=== PATIENT | female | born 1965 | race Caucasian/White ===

== ENCOUNTER 2020-12-15 09:15 | Outpatient (REF) | payer OTHER, SELFPAY ==
[2020-12-15 11:29] LABS: MANUAL DIFF FLAG NO
[2020-12-15 11:37] LABS: Basophils Percent Auto 0.6 % (0-2); Eosinophils Absolute Auto 0.2 X10*3/uL (0.0-0.4); Hemoglobin 14.3 g/dl (12.0-16.0); Imm Gran Abs Auto 0.01 X10*3/uL (0.00-0.03); Imm Gran Pct Auto 0.2 % (0.0-0.4); Lymphocytes Absolute Auto 1.2 X10*3/uL (1.2-4.9); Lymphocytes Percent Auto 23.2 % (20-40); Mean Corpuscular HGB Conc 33.3 g/dl (31.0-35.0); Mean Corpuscular Hemoglobin 32.2 pg (27.0-33.0); Mean Corpuscular Volume 96.8 fL (80-98); Mean Platelet Volume 10.6 fL (9.4-12.3); Monocytes Absolute Auto 0.5 X10*3/uL (0.1-1.2); Monocytes Percent Auto 9.2 % (2-11); Neutrophils Absolute Auto 3.2 X10*3/uL (2.0-8.3); Neutrophils Percent Auto 63.8 % (45-73); Platelet Count 315 X10*3/uL (160-400); Red Blood Count 4.44 X10*6/uL (4.20-5.50); Red Cell Distribution Width 12.6 % (11.0-16.0)
[2020-12-15 12:18] LABS: Anion Gap 14 (12-20); Blood Urea Nitrogen 14 mg/dL (9-16); Calcium 9.6 mg/dL (8.4-10.2); Carbon Dioxide 29 mmol/L (22-29); Chloride 104 mmol/L (96-108); Estimated Glomerular Filt Rate > 60; Glucose Random 100 mg/dL (60-115); Potassium 4.6 mmol/L (3.3-5.1); Sodium 142 mmol/L (135-145)
[2020-12-15 12:25] LABS: Erythrocyte Sedimentation Rate 38 MM/HR (0-20)
== END 2020-12-15 09:16 | disposition home or self-care (01) ==
LOC: HO.LAB 09:15
PROVIDERS: Visit Provider Nurse Practitioner Family
DX: R06.02 Shortness of breath (principal); T50.B95A Adverse effect of other viral vaccines, initial encounter; Z20.822 Contact with and (suspected) exposure to COVID-19
CPT/HCPCS: 36415; 80048; 85025; 85652; U0003; U0005

== ENCOUNTER 2020-12-15 09:16 | Outpatient (REF) | payer OTHER, SELFPAY ==
--- NOTE | ~2020-12-15 | XR_ITS ---
EXAMINATION: XR CHEST CLINICAL INFORMATION: Shortness of breath. Prior history non-Hodgkin's lymphoma. COMPARISON: CT abdomen 02/28/2017, CTA chest 10/01/2015. TECHNIQUE: 2 views of the chest were obtained. FINDINGS: The lungs are clear. There is no vascular congestion, pneumothorax, airspace opacity, or groundglass opacities. The costophrenic sulci are clear. The heart is normal in size. The hilar and mediastinal contours are unremarkable. There are some old calcified nodes again seen anterior left mediastinum, better appreciated on CTA chest 2015. That exam report notes calcified nodes related to treated non-Hodgkin's lymphoma. No acute bony abnormality. XR/XR chest 2V IMPRESSION: 1. Lungs clear. 2. Old calcified nodes anterior left mediastinum similar to CT 2015.
== END 2020-12-15 09:17 | disposition home or self-care (01) ==
LOC: HO.HMGCX 09:16
PROVIDERS: PCP Internal Medicine; Visit Provider Nurse Practitioner Family
DX: R06.02 Shortness of breath (principal); T50.B95A Adverse effect of other viral vaccines, initial encounter
CPT/HCPCS: 71046

== ENCOUNTER 2021-12-11 10:15 | Outpatient (REF) | payer OTHER, SELFPAY ==
--- NOTE | ~2021-12-11 | XR_ITS ---
EXAMINATION: XR RIBS, RIGHT CLINICAL INFORMATION: Pleurodynia COMPARISON: Chest x-ray 12/15/2020. TECHNIQUE: 3 views of the right ribs were obtained. FINDINGS: Lungs are clear. No consolidation, pneumothorax, or pleural effusion. The cardiomediastinal silhouette and pulmonary vasculature are normal. Old calcified left hilar lymph nodes. Cholecystectomy clips. Osseous structures are unremarkable. Ribs are intact. No fractures are identified. XR/XR ribs RT min 3V w CXR1V IMPRESSION: No rib fracture. No pleural effusion. No pneumothorax. No focal pneumonia.
== END 2021-12-11 10:16 | disposition home or self-care (01) ==
LOC: HO.HMGCX 10:15
PROVIDERS: Visit Provider Physician Assistant
DX: R07.81 Pleurodynia (principal); Z91.81 History of falling
CPT/HCPCS: 71101

== ENCOUNTER 2023-01-05 15:45 | Emergency (ER) | payer OTHER, SELFPAY ==
--- NOTE | ~2023-01-05 | CT_ITS ---
EXAMINATION: CT GI BLEED ABDOMEN AND PELVIS WITHOUT AND WITH INTRAVENOUS CONTRAST CLINICAL INFORMATION: Bright red blood per rectum. COMPARISON: CT abdomen and pelvis of 02/28/2017. TECHNIQUE: Multidetector volumetric CT imaging of the abdomen and pelvis from the lung bases to the pubic symphysis was acquired without and with intravenous contrast administration. Postcontrast images were obtained in the portal venous phase and 2 minute delayed phase. Oral contrast: None Intravenous contrast: 80 mL Omnipaque 350 No contrast reaction reported Sagittal and coronal reformatted images were obtained on the technologist workstation. Total exam dose-length product 2201 mGy-cm FINDINGS: LUNG BASES: Unremarkable. LIVER, BILIARY DUCTS, AND GALLBLADDER: The liver is normal in size and attenuation without focal hepatic lesions or biliary ductal dilatation. The gallbladder is surgically absent. PANCREAS: Psoh-mh-ukmxjasb fatty atrophy of the pancreas. No peripancreatic stranding or fluid is noted. ADRENAL GLANDS: The adrenal glands are normal in appearance. SPLEEN: The spleen is normal in appearance. KIDNEYS AND URETERS: The kidneys are normal in size, shape and attenuation. There is symmetrical enhancement of the kidneys. There is no evidence of radiopaque urinary tract calculi, hydroureteronephrosis or significant perinephric stranding. A 2.9 cm exophytic lesion from the mid right kidney laterally represents a cyst by CT Hounsfield units criteria and no further imaging follow-up of this finding is warranted. A 2.9 cm exophytic hypodense lesion from the mid left kidney posteriorly represents a cyst by CT Hounsfield units criteria and no further imaging follow-up of this finding is warranted. There is a 1.5 cm low-attenuation in the mid right kidney anteromedially which does not represents a simple cyst by CT Hounsfield units criteria. A small calcification along the posterior-inferior aspect of this cyst may represent cortical calcification versus milk of calcium calcifications within a cyst. A 1.1 cm low-attenuation in the lower pole of the right kidney anteriorly does not represent a cyst by CT Hounsfield units criteria. A 1 cm low-attenuation in the upper pole of the left kidney anterolaterally (series 10, image 73) does not represent a simple cyst by CT Hounsfield units criteria. URINARY BLADDER: Underdistended and therefore not optimally evaluated. No evidence of radiopaque calculi. GASTROINTESTINAL SYSTEM: The stomach is partially distended. No abnormal small bowel dilatation. The colon is normal in caliber. No evidence of colonic wall thickening or pericolonic fat stranding. Small portion of the distal most rectum/anal canal are not imaged on postcontrast images. There is no evidence to suggest active bleeding in the visualized gastrointestinal tract. Scattered colonic diverticula are seen. An appendix is not visualized. There are surgical changes noted along the posterior inferior cecal wall, likely related to prior appendectomy. Recommend clinical correlation. PERITONEUM AND RETROPERITONEUM: No evidence of free intraperitoneal air or fluid. Mild stranding in the small bowel mesentery is noted without associated enlarged lymph nodes, similar to previous CT representing chronic mesenteric panniculitis. PELVIC VISCERA: Unremarkable CT appearance of the uterus and ovaries as well as adnexa. Multiple phleboliths in the pelvis. LYMPH NODES: No evidence of pathologically-enlarged lymph nodes. VASCULATURE: Aortoiliac vessels are normal in caliber. Imsx-xk-wujjurbl scattered calcific atherosclerosis of the aortoiliac vessels. OSSEOUS STRUCTURES: No acute or suspicious osseous lesions. Severe disc space narrowing is noted at L5-S1 with marginal disc osteophyte changes resulting in xrbppals-ph-wbfgoc bilateral neural foraminal stenosis at the same level. Changes of diffuse idiopathic skeletal hyperostosis in the visualized lower thoracic spine. CT/CT gi bleed abd pel wo/w IVcon IMPRESSION: 1. No evidence of active gastrointestinal bleeding in the visualized gastrointestinal tract. Very small portion of the distalmost rectum/anal canal are not imaged on postcontrast images. 2. Colonic diverticulosis without acute diverticulitis. 3. Bilateral renal low-attenuation lesions which do not represent simple cysts by CT Hounsfield units criteria. Consider further evaluation with renal ultrasound. 4. Nfos-sc-blbpyqqk fatty atrophy of the pancreas. 5. Mild stranding in the small bowel mesentery without associated enlarged lymph nodes, similar to previous representing chronic mesenteric panniculitis.
--- NOTE | ~2023-01-05 | XR_ITS ---
EXAMINATION: XR CHEST CLINICAL INFORMATION: Shortness of breath and weakness COMPARISON: Previous chest x-ray December 2021 TECHNIQUE: Frontal view of the chest was obtained. FINDINGS: The cardiac and mediastinal contours are stable. Small calcified left hilar or mediastinal lymph nodes appear unchanged. The lungs are clear. No pleural effusion or pneumothorax. Degenerative changes of the spine. XR/XR chest 1V IMPRESSION: No evidence for acute disease in the chest.
--- NOTE | 2023-01-05 15:55 | ED.GIBLEED ---
HPI - GI Bleed General Chief complaint: GI Bleed Stated complaint: bloody stool Time Seen by Provider: 01/05/23 15:53 Source: patient and EMS Mode of arrival: EMS Limitations: no limitations History of Present Illness HPI Narrative: 57-year-old female presents via EMS for 3 weeks of rectal bleeding, reports to have bright red blood per rectum. Does have a history of polyps, states that she presents today via EMS because she had episode of dizziness and near-syncope while in the shower. She does have some abdominal cramping that started a few days ago. She points to the lower abdominal quadrants all the way across, and states that it is a cramping ache. She does not report any fevers, chills, risk of food poisoning, recent sick contacts, or significant change in stool form. MD complaint: blood on toilet paper, blood streaked stool and gross hematochezia Onset (ago): week(s) (3) Pain Consistency: intermittent Severity: moderate Relieving factors: none Exacerbating factors: movement Context: other (History of polyps) Associated symptoms: abdominal pain, headaches, malaise, shortness of breath and weakness Treatments Prior to Arrival: none Related Data Home Medications Medication Instructions Recorded Confirmed albuterol sulfate 90 mcg/actuation 2 puff PO Q6H PRN wheezing 12/15/20 aerosol inhaler amlodipine 2.5 mg tablet 2.5 mg PO DAILY 12/15/20 amlodipine 5 mg tablet 5 mg PO DAILY 12/15/20 apixaban 5 mg tablet 5 mg PO BID 12/15/20 atorvastatin 80 mg tablet 80 mg PO DAILY 12/15/20 ergocalciferol (vitamin D2) 1,250 1,250 mcg PO QWEEK 12/15/20 mcg (50,000 unit) capsule furosemide 20 mg tablet 20 mg PO DAILY 12/15/20 hydrocortisone 2.5 % topical cream topical BID 12/15/20 with perineal applicator levothyroxine 112 mcg tablet 112 mcg PO DAILY 12/15/20 lorazepam 1 mg tablet 1 mg PO DAILY PRN 12/15/20 metoprolol tartrate 50 mg tablet 50 mg PO BID 12/15/20 verapamil 120 mg tablet,extended 120 mg PO DAILY 12/15/20 release Previous Rx's Medication Instructions Recorded oxycodone 5 mg tablet 5 mg PO Q8H PRN pain #10 tabs 12/11/21 cyclobenzaprine 5 mg tablet 5 mg PO TID PRN muscle spasm #10 12/20/21 tabs Allergies Allergy/AdvReac Type Severity Reaction Status Date / Time oxycodone [OXYCODONE] Allergy Mild ITCHING Unverified 12/20/21 11:58 diphenhydramine Allergy Unknown ANAPHYLAXIS Unverified 12/20/21 11:58 [From BENADRYL] Review of Systems Review of Systems: Constitutional: No Fever, No Chills Cardiovascular: No Chest Pain, positive SOB Respiratory: No Cough, positive Dyspnea Gastrointestinal: No Nausea, No Vomiting, No Diarrhea, positive abdominal Pain, positive bright red blood per rectum Genitourinary: No Dysuria, No Hematuria Musculoskeletal: No joint pain, No Myalgias, No Joint Swelling Skin: No Skin lacerations, No rash Neuro: Positive Weakness, No Numbness, No Paresthesias, No Loss of Consciousness, positive Dizziness, positive Headache Yes all other systems are reviewed and are negative [facility] Past Medical History Attestation statement: The following information was validated with the patient. Source: old records reviewed Social History Social History Smoked in Last 30 Days: No Advance Directives: No Advance Directives Information Provided: Yes Patient : No Physical Exam Vital Signs: Vital Signs: Last Vital Signs Temp 97.9 F 01/05/23 19:46 Pulse 61 01/05/23 19:46 Resp 17 01/05/23 19:46 BP 165/63 H 01/05/23 19:46 Pulse Ox 98 01/05/23 19:46 O2 Del Method Room Air 01/05/23 19:46 BMI result Body Mass Index 42.7 Appearance: Alert. Oriented X3. No acute distress. Pallor Eyes: Pupils equal, round and reactive to light. EOMI. Sclera nonicteric. ENT: Pharynx normal. Moist mucous membranes. Neck: Normal inspection. Neck supple. No JVD. CVS: Normal heart rate and rhythm. Pulses normal. Respiratory: No respiratory distress. Breath sounds normal. Abdomen: Soft and tenderness to lower quadrants. No rebound or rigidity. Skin: Skin warm and dry. Normal skin color. Normal skin turgor. Extremities: No lower extremity edema. Gait not assessed for safety. Moves all extremities against resistance. Neuro: No motor deficit. No sensory deficit. Cranial nerves 2-12 intact. Course Course Course Narrative: 57-year-old female with past medical history of Hodgkin's lymphoma in remission, history of PE on Eliquis, AFib, hypertension, hyperlipidemia, hypothyroidism, and asthma presents for over 3 weeks of bright red blood per rectum. States that while she was in the shower today, her dizziness and weakness caused her to almost fall over. Patient also reports headache. She does have a history of polyps, and has had prior abdominal surgeries appendectomy, and bilateral oophorectomy with salpingectomy. She does report intermittent shortness of breath, dizziness, weakness, states to feel more pale than normal. Patient does not report any fevers, chills, chest pain or pressure, or changes in stool formation. Abdomen is tender to right lower left lower and suprapubic. Will order labs, CT GI study, and type and screen. Will give L of fluid as blood pressure is 111/35. Consent for blood obtained. 16:56 H&H indicates normal values of 12.8/37.2. Chest x-rays negative for acute findings 19:18 CT scan abdomen pelvis negative for acute findings, does show some findings of the kidneys, considering the patient does have history of Hodgkin's lymphoma, plan of care is for patient to follow-up with the Oncology, CT disc made for this patient. Also, rectal bleeding most likely due to hemorrhoids, plan of care is for patient to follow-up with Dr. Hassan as an outpatient. Patient should also follow up with Gastroenterology. Patient verbalized understanding of discharge verbalized understanding signs and symptoms indicating need for emergent intervention. Medications Administered Discontinued Medications Generic Name Dose Route Start Last Admin Trade Name Freq PRN Reason Stop Dose Admin Sodium Chloride 1,000 mls @ 999 mls/hr 01/05/23 16:45 01/05/23 18:46 Ns IVCONT 01/05/23 17:45 Infused .Q1H1M EULOGIO Infusion Iohexol 100 ml 01/05/23 17:24 01/05/23 17:25 Iohexol 350 Mg/Ml 100 Ml Infus..Btl IV 01/05/23 17:25 80 ml ONCE ONE Administration Medical Decision Making Differential Diagnosis Differential Diagnoses: The differential diagnosis associated with the presentation includes Diverticular bleed, hemorrhoids, colon cancer, colitis Lab Data MDM Lab Attestation statement: I reviewed the patient's lab results. 01/05/23 16:34 01/05/23 16:34 Labs: Lab Results 01/05/23 01/05/23 01/05/23 Range/Units 16:34 16:34 16:34 WBC 6.8 (4.8-10.8) X10*3/uL RBC 3.91 L (4.20-5.50) X10*6/uL Hgb 12.8 (12.0-16.0) g/dl Hct 37.2 (37.0-47.0) % MCV 95.1 (80.0-98.0) fL MCH 32.7 (27.0-33.0) pg MCHC 34.4 (31.0-35.0) g/dl RDW 12.5 (11.0-16.0) % Plt Count 231 (160-400) X10*3/uL MPV 10.0 (9.4-12.3) fL Immature Gran % (Auto) 0.1 (0.0-0.4) % Neut % (Auto) 69.0 (45-73) % Lymph % (Auto) 21.7 (20-40) % [place] % (Auto) 7.1 (2-11) % Eos % (Auto) 1.5 (0-4) % Baso % (Auto) 0.6 (0-2) % Lymph # (Auto) 1.5 (1.2-4.9) X10*3/uL [place] # (Auto) 0.5 (0.1-1.2) X10*3/uL Eos # (Auto) 0.1 (0.0-0.4) X10*3/uL Baso # (Auto) 0.0 (0.0-0.2) X10*3/uL Abs Immat Gran (auto) 0.01 (0.00-0.03) X10*3/uL Absolute Neuts (auto) 4.7 (2.0-8.3) x10*3/uL Absolute Nucleated RBC 0.000 (0.0-0.012) X10*3/uL Nucleated RBC % (auto) 0.0 (0.0-0.2) /100WBC PT (10.0-13.1) SEC INR (0.9-1.1) APTT 35.1 (26.0-36.4) SEC Sodium 144 (135-145) mmol/L Potassium 3.7 (3.3-5.1) mmol/L Chloride 108 (96-108) mmol/L Carbon Dioxide 27 (22-29) mmol/L Anion Gap 13 (12-20) BUN 16 (9-16) mg/dL Creatinine 0.83 (0.5-1.4) mg/dL Estim Creat Clear Calc 96.2 Estimated GFR > 60 Random Glucose 98 (60-115) mg/dL Calcium 9.7 (8.4-10.2) mg/dL Magnesium 2.0 (1.6-2.6) mg/dL Total Bilirubin 0.4 (0.0-1.0) mg/dL Direct Bilirubin < 0.2 (0.0-0.5) mg/dL AST 21 (5-31) U/L ALT 19 (0-31) U/L Alkaline Phosphatase 76 (39-117) U/L Troponin I High Sens (<3.5-17.0) ng/L Total Protein 6.7 (6.5-8.0) g/dL Albumin 4.0 (3.5-5.0) g/dL Lipase 16 (8-78) U/L Blood Type Antibody Screen 01/05/23 01/05/23 01/05/23 Range/Units 16:34 16:34 16:34 WBC (4.8-10.8) X10*3/uL RBC (4.20-5.50) X10*6/uL Hgb (12.0-16.0) g/dl Hct (37.0-47.0) % MCV (80.0-98.0) fL MCH (27.0-33.0) pg MCHC (31.0-35.0) g/dl RDW (11.0-16.0) % Plt Count (160-400) X10*3/uL MPV (9.4-12.3) fL Immature Gran % (Auto) (0.0-0.4) % Neut % (Auto) (45-73) % Lymph % (Auto) (20-40) % [place] % (Auto) (2-11) % Eos % (Auto) (0-4) % Baso % (Auto) (0-2) % Lymph # (Auto) (1.2-4.9) X10*3/uL [place] # (Auto) (0.1-1.2) X10*3/uL Eos # (Auto) (0.0-0.4) X10*3/uL Baso # (Auto) (0.0-0.2) X10*3/uL Abs Immat Gran (auto) (0.00-0.03) X10*3/uL Absolute Neuts (auto) (2.0-8.3) x10*3/uL Absolute Nucleated RBC (0.0-0.012) X10*3/uL Nucleated RBC % (auto) (0.0-0.2) /100WBC PT 14.3 H (10.0-13.1) SEC INR 1.2 H (0.9-1.1) APTT (26.0-36.4) SEC Sodium (135-145) mmol/L Potassium (3.3-5.1) mmol/L Chloride (96-108) mmol/L Carbon Dioxide (22-29) mmol/L Anion Gap (12-20) BUN (9-16) mg/dL Creatinine (0.5-1.4) mg/dL Estim Creat Clear Calc Estimated GFR Random Glucose (60-115) mg/dL Calcium (8.4-10.2) mg/dL Magnesium (1.6-2.6) mg/dL Total Bilirubin (0.0-1.0) mg/dL Direct Bilirubin (0.0-0.5) mg/dL AST (5-31) U/L ALT (0-31) U/L Alkaline Phosphatase (39-117) U/L Troponin I High Sens < 3.5 (<3.5-17.0) ng/L Total Protein (6.5-8.0) g/dL Albumin (3.5-5.0) g/dL Lipase (8-78) U/L Blood Type A Positive Antibody Screen NEGATIVE Independent Interpretation I performed an independent interpretation of an: EKG, Plain X-Ray and CT Scan Interpretation: Sinus bradycardia Left axis deviation Moderate voltage criteria for LVH, may be normal variant ( R in aVL , [place] product ) Abnormal ECG When compared with ECG of 31-DEC-2015 17:11, Sinus rhythm has replaced Atrial flutter Vent. rate has decreased BY 56 BPM QT has shortened Vent. rate 53 BPM [place] interval 188 ms QRS duration 98 ms QT/QTc 486/456 ms P-R-T axes -17 -38 43 Radiology Impression Discussion of test interpretation with radiology: I have reviewed the radiologist's reading. Radiologist Impression: EXAMINATION: XR CHEST CLINICAL INFORMATION: Shortness of breath and weakness COMPARISON: Previous chest x-ray December 2021 TECHNIQUE: Frontal view of the chest was obtained. FINDINGS: The cardiac and mediastinal contours are stable. Small calcified left hilar or mediastinal lymph nodes appear unchanged. The lungs are clear. No pleural effusion or pneumothorax. Degenerative changes of the spine. XR/XR chest 1V IMPRESSION: No evidence for acute disease in the chest. EXAMINATION: CT GI BLEED ABDOMEN AND PELVIS WITHOUT AND WITH INTRAVENOUS CONTRAST CLINICAL INFORMATION: Bright red blood per rectum. COMPARISON: CT abdomen and pelvis of 02/28/2017. TECHNIQUE: Multidetector volumetric CT imaging of the abdomen and pelvis from the lung bases to the pubic symphysis was acquired without and with intravenous contrast administration. Postcontrast images were obtained in the portal venous phase and 2 minute delayed phase. Oral contrast: None Intravenous contrast: 80 mL Omnipaque 350 No contrast reaction reported Sagittal and coronal reformatted images were obtained on the technologist workstation. Total exam dose-length product 2201 mGy-cm FINDINGS: LUNG BASES: Unremarkable. LIVER, BILIARY DUCTS, AND GALLBLADDER: The liver is normal in size and attenuation without focal hepatic lesions or biliary ductal dilatation. The gallbladder is surgically absent. PANCREAS: [id number] fatty atrophy of the pancreas. No peripancreatic stranding or fluid is noted. ADRENAL GLANDS: The adrenal glands are normal in appearance. SPLEEN: The spleen is normal in appearance. KIDNEYS AND URETERS: The kidneys are normal in size, shape and attenuation. There is symmetrical enhancement of the kidneys. There is no evidence of radiopaque urinary tract calculi, hydroureteronephrosis or significant perinephric stranding. A 2.9 cm exophytic lesion from the mid right kidney laterally represents a cyst by CT Hounsfield units criteria and no further imaging follow-up of this finding is warranted. A 2.9 cm exophytic hypodense lesion from the mid left kidney posteriorly represents a cyst by CT Hounsfield units criteria and no further imaging follow-up of this finding is warranted. There is a 1.5 cm low-attenuation in the mid right kidney anteromedially which does not represents a simple cyst by CT Hounsfield units criteria. A small calcification along the posterior-inferior aspect of this cyst may represent cortical calcification versus milk of calcium calcifications within a cyst. A 1.1 cm low-attenuation in the lower pole of the right kidney anteriorly does not represent a cyst by CT Hounsfield units criteria. A 1 cm low-attenuation in the upper pole of the left kidney anterolaterally (series 10, image 73) does not represent a simple cyst by CT Hounsfield units criteria. URINARY BLADDER: Underdistended and therefore not optimally evaluated. No evidence of radiopaque calculi. GASTROINTESTINAL SYSTEM: The stomach is partially distended. No abnormal small bowel dilatation. The colon is normal in caliber. No evidence of colonic wall thickening or pericolonic fat stranding. Small portion of the distal most rectum/anal canal are not imaged on postcontrast images. There is no evidence to suggest active bleeding in the visualized gastrointestinal tract. Scattered colonic diverticula are seen. An appendix is not visualized. There are surgical changes noted along the posterior inferior cecal wall, likely related to prior appendectomy. Recommend clinical correlation. PERITONEUM AND RETROPERITONEUM: No evidence of free intraperitoneal air or fluid. Mild stranding in the small bowel mesentery is noted without associated enlarged lymph nodes, similar to previous CT representing chronic mesenteric panniculitis. PELVIC VISCERA: Unremarkable CT appearance of the uterus and ovaries as well as adnexa. Multiple phleboliths in the pelvis. LYMPH NODES: No evidence of pathologically-enlarged lymph nodes. VASCULATURE: Aortoiliac vessels are normal in caliber. Gaps-go-izxpzxdc scattered calcific atherosclerosis of the aortoiliac vessels. OSSEOUS STRUCTURES: No acute or suspicious osseous lesions. Severe disc space narrowing is noted at L5-S1 with marginal disc osteophyte changes resulting in [id number] bilateral neural foraminal stenosis at the same level. Changes of diffuse idiopathic skeletal hyperostosis in the visualized lower thoracic spine. CT/CT gi bleed abd pel wo/w IVcon IMPRESSION: 1.? No evidence of active gastrointestinal bleeding in the visualized gastrointestinal tract. Very small portion of the distalmost rectum/anal canal are not imaged on postcontrast images. ? 2.? Colonic diverticulosis without acute diverticulitis. ? 3.? Bilateral renal low-attenuation lesions which do not represent simple cysts by CT Hounsfield units criteria. Consider further evaluation with renal ultrasound. ? 4.? Yxgf-ra-lporpyus fatty atrophy of the pancreas. ? 5.? Mild stranding in the small bowel mesentery without associated enlarged lymph nodes, similar to previous representing chronic mesenteric panniculitis. ? ? External Record Review External record reviewed: Outpatient record and Prior outpatient labs Chronic Conditions Patient?s care impacted by: Cancer Discharge Plan Discharge Clinical Impression: Hemorrhoids, Hematochezia, Kidney cysts, Abdominal pain Patient Disposition: Home, Self-Care Instructions: Hemorrhoids (ED), Rectal Bleeding (ED), Abdominal Pain (ED), Kidney Cyst (ED) Additional Instructions: You were evaluated for abdominal pain and bright red blood per rectum. Your bleeding is most likely due to hemorrhoids, please follow-up with Dr. Hassan, general surgeon as an outpatient for consult for possible hemorrhoidectomy if needed. Considering your past medical history of polyps, follow-up with gastroenterology I have referred you to Dr. Ayon. Incidental findings on her CT scan of abdomen pelvis indicates bilateral kidney cysts with lesions that do not represent simple cysts. We have given you a disc of her CT scan. Please follow-up with your oncologist for further workup due to her past medical history of Hodgkin's lymphoma. Thank you for choosing this emergency department for evaluation. Please follow-up with primary care physician as needed. Return to the emergency department for any new, concerning, or worsening symptoms. Prescriptions: No Action lorazepam 1 mg tablet 1 mg PO DAILY PRN furosemide 20 mg tablet 20 mg PO DAILY ergocalciferol (vitamin D2) 1,250 mcg (50,000 unit) capsule 1,250 mcg PO QWEEK levothyroxine 112 mcg tablet 112 mcg PO DAILY verapamil 120 mg tablet extended release 120 mg PO DAILY albuterol sulfate 90 mcg/actuation HFA aerosol inhaler 2 puff PO Q6H PRN (Reason: wheezing) amlodipine 5 mg tablet 5 mg PO DAILY Eliquis 5 mg tablet 5 mg PO BID metoprolol tartrate 50 mg tablet 50 mg PO BID hydrocortisone 2.5 % cream with perineal applicator topical BID amlodipine 2.5 mg tablet 2.5 mg PO DAILY atorvastatin 80 mg tablet 80 mg PO DAILY oxycodone 5 mg tablet 5 mg PO Q8H PRN (Reason: pain) Qty: 10 0RF cyclobenzaprine 5 mg tablet 5 mg PO TID PRN (Reason: muscle spasm) Qty: 10 0RF Referrals: Zan Hassan MD [Physician] - 2 weeks (Bleeding hemorrhoids) Lizbeth Ayon MD [Physician] - 1 week (Bright red blood per rectum, history polyps) Interventions: ED Discharge Assessment Last Done: 01/05/23 21:06 Discharge Date/Time: 01/05/23 21:17
[2023-01-05 15:57] VITALS: BP 111/35; BP 123/58; PULSE 55; PULSE 56; RESP 20; TEMP 36.8; O2SAT 96; BMI 42.7
--- NOTE | 2023-01-05 16:05 | ECG_ITS ---
Test Reason : GI BLEED, WEAKNESS Blood Pressure : / mmHG Vent. Rate : 053 BPM Atrial Rate : 053 BPM P-R Int : 188 ms QRS Dur : 098 ms QT Int : 486 ms P-R-T Axes : -17 -38 043 degrees QTc Int : 456 ms Sinus bradycardia Left axis deviation Moderate voltage criteria for LVH, may be normal variant ( R in aVL , [place] product ) Abnormal ECG When compared with ECG of 31-DEC-2015 17:11, Sinus rhythm has replaced Atrial flutter Vent. rate has decreased BY 56 BPM QT has shortened Referred By: Meliza Be Electronically Signed By:ANGELES RODRIGUEZ
[2023-01-05 16:41] LABS: MANUAL DIFF FLAG NO
[2023-01-05 16:43] LABS: Basophils Percent Auto 0.6 % (0-2); Eosinophils Absolute Auto 0.1 X10*3/uL (0.0-0.4); Eosinophils Percent Auto 1.5 % (0-4); Hematocrit 37.2 % (37.0-47.0); Hemoglobin 12.8 g/dl (12.0-16.0); Imm Gran Abs Auto 0.01 X10*3/uL (0.00-0.03); Imm Gran Pct Auto 0.1 % (0.0-0.4); Lymphocytes Absolute Auto 1.5 X10*3/uL (1.2-4.9); Lymphocytes Percent Auto 21.7 % (20-40); Mean Corpuscular HGB Conc 34.4 g/dl (31.0-35.0); Mean Corpuscular Hemoglobin 32.7 pg (27.0-33.0); Mean Corpuscular Volume 95.1 fL (80.0-98.0); Monocytes Absolute Auto 0.5 X10*3/uL (0.1-1.2); Monocytes Percent Auto 7.1 % (2-11); Neutrophils Absolute Auto 4.7 x10*3/uL (2.0-8.3); Platelet Count 231 X10*3/uL (160-400); Red Blood Count 3.91 X10*6/uL (4.20-5.50); Red Cell Distribution Width 12.5 % (11.0-16.0); White Blood Count 6.8 X10*3/uL (4.8-10.8)
[2023-01-05 16:50] LABS: INTERNATIONAL NORM RATIO 1.2 (0.9-1.1); Prothrombin Time 14.3 SEC (10.0-13.1)
[2023-01-05 16:53] LABS: Partial Thromboplastin Time 35.1 SEC (26.0-36.4)
[2023-01-05 16:57] LABS: Alanine Aminotransferase 19 U/L (0-31); Alkaline Phosphatase 76 U/L (39-117); Anion Gap 13 (12-20); Aspartate Amino Transferase 21 U/L (5-31); Bilirubin Direct < 0.2 mg/dL (0.0-0.5); Bilirubin Total 0.4 mg/dL (0.0-1.0); Blood Urea Nitrogen 16 mg/dL (9-16); Calcium 9.7 mg/dL (8.4-10.2); Carbon Dioxide 27 mmol/L (22-29); Chloride 108 mmol/L (96-108); Creatinine Clr Calc Pharmacy 96.2; Estimated Glomerular Filt Rate > 60; Glucose Random 98 mg/dL (60-115); Lipase 16 U/L (8-78); Potassium 3.7 mmol/L (3.3-5.1); Sodium 144 mmol/L (135-145); Total Protein 6.7 g/dL (6.5-8.0)
[2023-01-05 17:05] LABS: Troponin-I High Sensitivity < 3.5 ng/L (<3.5-17.0)
[2023-01-05] MEDS: iohexoL 350 MG/ML 100 ML INFUS..BTL IV (17:25)
[2023-01-05] MEDS: 0.9 % Sodium Chloride 1,000 ML 999 ML IVCONT (17:27)
--- NOTE | 2023-01-05 18:46 | PC.NURSE ---
Continues to rest comfortably in bed, offering no complaints. States she has a colonoscopy at [facility] this coming . Call renee in reach
[2023-01-05 19:46] VITALS: BP 165/63; PULSE 61; RESP 17; TEMP 36.6; O2SAT 98
--- NOTE | 2023-01-05 19:46 | PC.NURSE ---
assume care of pt aox4
--- NOTE | 2023-01-05 21:15 | PC.NURSE ---
reminded pt that urine sample is needed to do further work up
--- NOTE | 2023-01-05 21:17 | PC.NURSE ---
Discharge instructions given and explained to patient No apparent distress Patient ambulates safely and independently All of patient's questions answered IV cath intact upon removal
== END 2023-01-05 21:17 | disposition home or self-care (01) ==
PROVIDERS: Nurse Practitioner Family; Emergency Provider Emergency Medicine Emergency Medical Services
DX: K64.9 Unspecified hemorrhoids (principal); K92.1 Melena; N28.1 Cyst of kidney, acquired; R10.9 Unspecified abdominal pain; I48.91 Unspecified atrial fibrillation; Z86.711 Personal history of pulmonary embolism; Z79.01 Long term (current) use of anticoagulants
CPT/HCPCS: 36415; 71045; 74178; 80048; 80076; 83690; 83735; 84484; 85025; 85610; 85730; 86850; 86900; 86901; 93005; 96360; 99284; 99285; Q9967

== ENCOUNTER → 2023-01-08 13:21 | Outpatient (BNVA) | payer OTHER, SELFPAY | PROVIDERS: Visit Provider Surgery | DX: K64.4 Residual hemorrhoidal skin tags (principal) | CPT/HCPCS: 99202 ==

== ENCOUNTER 2023-01-25 08:27 | Day surgery (SDC) | payer OTHER, SELFPAY ==
[2023-01-22 14:00] VITALS: BMI 38.9
--- NOTE | 2023-01-23 09:12 | HO.ANESPROP2 ---
Documented by User: Antonia Lyons NP 01/24/23 10:36 HPI - Anesthesia Eval Consult details Narrative: 57yo F for [place]or[place]ide[place] [facility] [place] [facility] [place] with rectal bleeding r/t hemorrhoids Eliquis for afib/PE Stable PAF/CAD at 10/2022 cardiac office visit with 6 month f/u [facility] Active Problems Active Problems: All Active Problems (Updated 01/08/23 @ 13:48 by HERIBERTO Marrero) Low back pain (Acute) Fall (Acute) Shortness of breath after COVID-19 vaccination (Acute) Past Medical History Medical History (Updated 01/24/23 @ 10:35 by Antonia Lyons NP) Afib Asthma CAD (coronary artery disease) History of calculus of gallbladder HLD (hyperlipidemia) Hodgkins lymphoma HTN (hypertension) Hypothyroid Pulmonary embolism Surgical History Surgical History (Updated 01/24/23 @ 10:35 by Antonia Lyons NP) H/O angioplasty Hx of appendectomy Social History Social History (Updated 01/08/23 @ 13:50 by HERIBERTO Marrero) Alcohol intake: current Alcohol intake frequency: holidays/special occasions only Alcohol type: beer Patient Tobacco Use Status: Former Tobacco user Quit Date: socially smoker Tobacco use type: Cigarette Second Hand Smoke Exposure: No Use of substances other than those prescribed or required for medical reasons: No Are you DNR?: No Advance Directives: No Advance Directives Information Provided: Yes Advance Directives on File: No Meds Allergies Allergy/AdvReac Type Severity Reaction Status Date / Time oxycodone [OXYCODONE] Allergy Mild ITCHING Verified 01/25/23 09:10 diphenhydramine Allergy Unknown ANAPHYLAXIS Verified 01/25/23 09:10 [From BENADRYL] Home Medications Medication Instructions Recorded Confirmed Last Taken Type albuterol sulfate 90 mcg/actuation 2 puff PO Q6H PRN wheezing 12/15/20 Unknown History aerosol inhaler apixaban 5 mg tablet 5 mg PO BID 12/15/20 Unknown History atorvastatin 80 mg tablet 80 mg PO DAILY 12/15/20 Unknown History ergocalciferol (vitamin D2) 1,250 1,250 mcg PO QWEEK 12/15/20 Unknown History mcg (50,000 unit) capsule furosemide 20 mg tablet 20 mg PO DAILY 12/15/20 Unknown History hydrocortisone 2.5 % topical cream topical BID 12/15/20 Unknown History with perineal applicator levothyroxine 112 mcg tablet 112 mcg PO DAILY 12/15/20 Unknown History lorazepam 1 mg tablet 1 mg PO DAILY PRN 12/15/20 Unknown History metoprolol tartrate 50 mg tablet 50 mg PO BID 12/15/20 Unknown History verapamil 120 mg tablet,extended 120 mg PO DAILY 12/15/20 Unknown History release apixaban 5 mg tablet (Eliquis) 5 mg PO BID 01/08/23 Unknown History Exam Exam Date and Time: January 23, 2023 0912 Height,Weight and Vital Signs: Height 5 ft 8 in Weight 116.233 kg Pertinent Lab Results Pertinent Lab Results: Laboratory Tests 01/05/23 01/05/23 16:34 16:34 WBC 6.8 Hgb 12.8 Hct 37.2 Plt Count 231 Sodium 144 Potassium 3.7 Chloride 108 Carbon Dioxide 27 BUN 16 Creatinine 0.83 Narrative Narrative: EKG 01/2023 Vent. Rate : 053 BPM ? ? Atrial Rate : 053 BPM ?? P-R Int : 188 ms? QRS Dur : 098 ms ? ? QT Int : 486 ms ? ? ? P-R-T Axes : -17 -38 043 degrees ?? QTc Int : 456 ms ? Sinus bradycardia Left axis deviation Moderate voltage criteria for LVH, may be normal variant ( R in aVL , Dustin product ) Abnormal ECG When compared with ECG of 31-DEC-2015 17:11, Sinus rhythm has replaced Atrial flutter Vent. rate has decreased BY? 56 BPM QT has shortened ECHO 2021 (per 10/2022 cardiac office visit note) Nml LV systolic function and no significant valve disease CT gi bleed abd pel wo/w IVcon 01/2023 IMPRESSION: 1.? No evidence of active gastrointestinal bleeding in the visualized gastrointestinal tract. Very small portion of the distalmost rectum/anal canal are not imaged on postcontrast images. ? 2.? Colonic diverticulosis without acute diverticulitis. ? 3.? Bilateral renal low-attenuation lesions which do not represent simple cysts by CT Hounsfield units criteria. Consider further evaluation with renal ultrasound. ? 4.? Akks-yg-dmiusvsm fatty atrophy of the pancreas. ? 5.? Mild stranding in the small bowel mesentery without associated enlarged lymph nodes, similar to previous representing chronic mesenteric panniculitis. Assessment and Plan Assessment Anesthesia Assessment: Chart Reviewed Documented by User: Harsh Guido MD 01/25/23 09:19 [facility] Past Medical History Medical History (Updated 01/24/23 @ 10:35 by Antonia Lyons NP) Afib Asthma CAD (coronary artery disease) History of calculus of gallbladder HLD (hyperlipidemia) Hodgkins lymphoma HTN (hypertension) Hypothyroid Pulmonary embolism Family History Family history of problems with anesthesia: No Surgical History Surgical History (Updated 01/24/23 @ 10:35 by Antonia Lyons NP) H/O angioplasty Hx of appendectomy History of Problems with Anesthesia: No Social History Social History (Updated 01/08/23 @ 13:50 by HERIBERTO Marrero) Alcohol intake: current Alcohol intake frequency: holidays/special occasions only Alcohol type: beer Patient Tobacco Use Status: Former Tobacco user Quit Date: socially smoker Tobacco use type: Cigarette Second Hand Smoke Exposure: No Use of substances other than those prescribed or required for medical reasons: No Are you DNR?: No Advance Directives: No Advance Directives Information Provided: Yes Advance Directives on File: No Meds Allergies Allergy/AdvReac Type Severity Reaction Status Date / Time oxycodone [OXYCODONE] Allergy Mild ITCHING Verified 01/25/23 09:10 diphenhydramine Allergy Unknown ANAPHYLAXIS Verified 01/25/23 09:10 [From BENADRYL] Home Medications Medication Instructions Recorded Confirmed Last Taken Type albuterol sulfate 90 mcg/actuation 2 puff PO Q6H PRN wheezing 12/15/20 Unknown History aerosol inhaler apixaban 5 mg tablet 5 mg PO BID 12/15/20 Unknown History atorvastatin 80 mg tablet 80 mg PO DAILY 12/15/20 Unknown History ergocalciferol (vitamin D2) 1,250 1,250 mcg PO QWEEK 12/15/20 Unknown History mcg (50,000 unit) capsule furosemide 20 mg tablet 20 mg PO DAILY 12/15/20 Unknown History hydrocortisone 2.5 % topical cream topical BID 12/15/20 Unknown History with perineal applicator levothyroxine 112 mcg tablet 112 mcg PO DAILY 12/15/20 Unknown History lorazepam 1 mg tablet 1 mg PO DAILY PRN 12/15/20 Unknown History metoprolol tartrate 50 mg tablet 50 mg PO BID 12/15/20 Unknown History verapamil 120 mg tablet,extended 120 mg PO DAILY 12/15/20 Unknown History release apixaban 5 mg tablet (Eliquis) 5 mg PO BID 01/08/23 Unknown History Exam Airway Mallampati Class: II TM Dist: >3cm Neck ROM: Full Heart: rrr Lungs: cta Assessment and Plan Assessment Anesthesia Assessment: Anesthesia Plan Discussed Final Anesthetic Review Family History of Problems with Anesthesia: No History of Problems with Anesthesia: No NPO: Yes ASA Class: II Final Preanesthetic Review: No Changes in Pt Med Stat, Meds/Allgs Chart Reviewed and Consent Obtained/Reviewed Patient Risk: Intermediate Procedure Risk: Intermediate Anesthetic Plan Anesthetic Plan: GA Disposition: Standard PACU
--- NOTE | 2023-01-24 11:40 | MHC.SHP ---
Pre-Procedural Eval Section A Date of Service: 01/24/23 The patient is an INPATIENT: No Changes since office visit: No Cold of Flu in the past 2 weeks, No New Medical Problems, No Changes in Medication and No Patient answered all questions The History & Physical has been completed within 30 days and I have reviewed it.: Yes Section B Chief Complaint: Unspecified hemorrhoids Allergies: Allergies Allergy/AdvReac Type Severity Reaction Status Date / Time oxycodone [OXYCODONE] Allergy Mild ITCHING Unverified 01/08/23 13:44 diphenhydramine Allergy Unknown ANAPHYLAXIS Unverified 01/08/23 13:44 [From BENADRYL] Plan I have reviewed the history and physical and performed a pertinent physical examination on my patient. No changes have occurred unless specified. Time Spent With Patient Time: Total time managing care of this patient today ____ minutes.
[2023-01-25] VITALS (16 sets, daily range): BP systolic 113–164; BP diastolic 51–90; PULSE 49–61; RESP 16–20; TEMP 36.1–36.7; O2SAT 90–99
[2023-01-25] MEDS: Lactated Ringers 1,000 ML 100 ML IVCONT (09:12)
--- NOTE | 2023-01-25 10:27 | W.PM.OPN ---
Operative Note Operative Note Date of Service: 01/25/23 Narrative: Preoperative diagnosis: [] Symptomatic internal and external hemorrhoids Postop diagnosis: [] Same Procedure [] internal and external hemorrhoidectomy Surgeon: [] [employer] K[employer]: [] Type of Anesthesia: [] General Indication for surgery: [] Symptomatic hemorrhoids. Findings: [] Patient was brought to the operating room, placed on the operative table supine position, after adequate level of general anesthesia was induced, patient was placed in a lithotomy position. Rectal exam followed by prepping and draping of the anorectal area was performed. Patient had 3 very large hemorrhoid populations of both internal external hemorrhoids at 3 7 and 11:00 o'clock positions lithotomy. Each was grasped and sequentially transected via mini ligature device at their respective base with double firing of the ligature device.. At completion the procedure, all wound beds were were clean dry and intact. Wound were irrigated, secured hemostasis. Wounds were infiltrated with a combination of 1% lidocaine and 0.5% bupivacaine. Gelfoam plug was then placed followed by sterile dressing. Sponge, needle, and instrument counts were reported to be correct. Patient tolerated the procedure well and emerged anesthesia stable condition. EBL minimal
[2023-01-25] MEDS: fentaNYL citrate/PF 100 MCG/2 ML VIAL 25 MCG IVPUSH ×3 (10:43→11:28)
[2023-01-25] MEDS: HYDROmorphone HCl 0.5 MG/0.5 ML SYRINGE 0.25 MG IVPUSH ×2 (11:40→11:54)
[2023-01-25] MEDS: Ondansetron ODT 4 MG TAB.RAPDIS 8 MG TRANSLINGU (12:46)
== END 2023-01-25 13:10 | disposition home or self-care (01) ==
PROVIDERS: Visit Provider Surgery
PROC: (CPT 46260; principal; 2023-01-25 10:00)
DX: K64.8 Other hemorrhoids (principal); D01.3 Carcinoma in situ of anus and anal canal; K64.4 Residual hemorrhoidal skin tags; Z85.71 Personal history of Hodgkin lymphoma; I25.10 Atherosclerotic heart disease of native coronary artery without angina pectoris; Z98.61 Coronary angioplasty status; I10 Essential (primary) hypertension; E78.5 Hyperlipidemia, unspecified; I48.91 Unspecified atrial fibrillation; I26.99 Other pulmonary embolism without acute cor pulmonale; Z79.01 Long term (current) use of anticoagulants; J45.909 Unspecified asthma, uncomplicated; Z79.899 Other long term (current) drug therapy; Z88.1 Allergy status to other antibiotic agents; Z88.8 Allergy status to other drugs, medicaments and biological substances; Z87.891 Personal history of nicotine dependence; Z86.16 Personal history of COVID-19
CPT/HCPCS: 46260; 88304; J0131; J0690; J1100; J1170; J1885; J2405; J2795; J3010

== ENCOUNTER → 2023-02-01 10:34 | Outpatient (BNVA) | payer OTHER, SELFPAY | PROVIDERS: PCP Internal Medicine; Visit Provider Surgery | DX: K64.9 Unspecified hemorrhoids (principal) | CPT/HCPCS: 99212 ==

== ENCOUNTER 2023-02-01 13:19 | Observation (INO) | payer OTHER, SELFPAY ==
--- NOTE | ~2023-02-01 | CT_ITS ---
EXAMINATION: CT ABDOMEN AND PELVIS WITHOUT CONTRAST CLINICAL INFORMATION: Lower abdominal pain COMPARISON: CT abdomen pelvis 01/05/2023 and 02/28/2017 TECHNIQUE: Multidetector volumetric imaging was performed from the superior aspect of the liver through the pubic symphysis. Sagittal and coronal reformatted images were obtained on the technologist's workstation. This CT examination was performed using dose optimization techniques as appropriate, variously including the following: *Automated exposure control *Adjustment of mA and/or kV according to patient size (this includes techniques or standardized protocols for targeted exams where dose is matched to indication/reason for exam; i.e. extremities or head) *Use of iterative reconstruction technique DLP: 930 mGy-cm FINDINGS: LUNG BASES: Unremarkable. ABDOMINAL AND PELVIC WALL: Unremarkable. LIVER AND BILIARY TREE: Unremarkable. GALLBLADDER: Status post cholecystectomy. PANCREAS: Unremarkable. SPLEEN: Unremarkable. ADRENAL GLANDS: Unremarkable. KIDNEYS AND URETERS: Fluid attenuation Bosniak 1 renal cysts, no imaging follow-up recommended. GASTROINTESTINAL TRACT: There is diffuse rectal wall thickening with extraluminal free air in the mesorectal space similar suggesting a rectal perforation. Colonic diverticulosis without any focal surrounding inflammatory change to favor diverticulitis. Status post appendectomy. VASCULAR: Unremarkable. LYMPH NODES/PERITONEUM: No lymphadenopathy. FREE FLUID: None. BLADDER: Unremarkable. PELVIC VISCERA: Unremarkable. OSSEOUS STRUCTURES: Indeterminate subcentimeter sclerotic lesion in the posterior aspect of the right iliac bone, new from remote priors. Stable punctate sclerotic lesion in the right femoral head which may reflect a bone island. CT/CT abdomen pelvis wo IV con IMPRESSION: There is diffuse rectal wall thickening with extraluminal free air in the mesorectal space similar suggesting a rectal perforation. When clinically appropriate, recommend correlation with direct inspection to ensure no underlying neoplasm. Indeterminate subcentimeter sclerotic lesion in the posterior aspect of the right iliac bone new from remote priors. Consider further evaluation with nuclear medicine bone scan, particularly if any history of underlying malignancy. The findings and recommendations were discussed with Dr. Begum by telephone at 02/01/2023 7:15 PM and it was ascertained that the content and urgency of the report was understood at the time of direct communication.
[2023-02-01 14:00] VITALS: BP 114/32; PULSE 51; RESP 18; TEMP 36.6; O2SAT 96; BMI 34.4
--- NOTE | 2023-02-01 14:07 | ED.GENADULT ---
HPI - General Adult General Chief complaint: GI Bleed Stated complaint: Rectal bleeding per EMS Time Seen by Provider: 02/01/23 14:06 Source: patient and EMS Mode of arrival: EMS Limitations: no limitations History of Present Illness HPI narrative: Patient is a 57 year old assigned female at with a history of atrial fibrillation on eliquis presenting to the emergency department today with rectal bleeding. Patient states that she is passing large, dark colored, blood clots from her rectum. Patient states that she had some hemorrhoids removed by Dr. Villagran and thought the bleeding was from that so she saw him this morning and he determined the bleeding is not coming from the surgical incisions. Patient denies any dizziness, lightheadedness, abdominal pain, nausea, vomiting, fever, chills, blurry vision, double vision, loss of vision, chest pain, difficulty breathing, shortness of breath, back pain, night sweats, pain with urination, increased urinary frequency, increased urinary urgency, blood in his urine, syncope or a near syncopal episode, recent trauma or falls, bowel incontinence, bladder incontinence, bowel retention, bladder retention, or any other complaints at this time. Onset (ago): hour(s) Relieving factors: none Exacerbating factors: none Treatments prior to arrival: none Related Data Home Medications Medication Instructions Recorded Confirmed albuterol sulfate 90 mcg/actuation 2 puff PO Q6H PRN wheezing 12/15/20 aerosol inhaler apixaban 5 mg tablet 5 mg PO BID 12/15/20 atorvastatin 80 mg tablet 80 mg PO DAILY 12/15/20 ergocalciferol (vitamin D2) 1,250 1,250 mcg PO QWEEK 12/15/20 mcg (50,000 unit) capsule furosemide 20 mg tablet 20 mg PO DAILY 12/15/20 hydrocortisone 2.5 % topical cream topical BID 12/15/20 with perineal applicator levothyroxine 112 mcg tablet 112 mcg PO DAILY 12/15/20 lorazepam 1 mg tablet 1 mg PO DAILY PRN 12/15/20 metoprolol tartrate 50 mg tablet 50 mg PO BID 12/15/20 verapamil 120 mg tablet,extended 120 mg PO DAILY 12/15/20 release apixaban 5 mg tablet (Eliquis) 5 mg PO BID 01/08/23 Previous Rx's Medication Instructions Recorded cyclobenzaprine 5 mg tablet 5 mg PO TID PRN muscle spasm #10 12/20/21 tabs hydrocodone 5 mg-acetaminophen 325 1 tab PO Q4-6H PRN pain #30 tabs 01/25/23 mg tablet hydrocodone 5 mg-acetaminophen 325 1 tab PO Q4-6H PRN pain #30 tabs 01/25/23 mg tablet hydrocodone 5 mg-acetaminophen 325 1 tab PO Q4-6H PRN pain #30 tabs 02/01/23 mg tablet Allergies Allergy/AdvReac Type Severity Reaction Status Date / Time oxycodone [OXYCODONE] Allergy Mild ITCHING Verified 02/01/23 10:48 diphenhydramine Allergy Unknown ANAPHYLAXIS Verified 02/01/23 10:48 [From BENADRYL] Review of Systems Constitutional: Constitutional: Reports no additional constitutional complaints, Denies chills, Denies fever(s) and Denies night sweats Eyes: Eyes: Reports no additional eye complaints, Denies blurry vision, Denies change in vision, Denies diplopia, Denies eye discharge, Denies loss of vision and Denies eye pain ENT: Denies dizziness Cardiovascular: Cardiovascular: Reports no additional cardiovascular complaints, Denies chest pain, Denies lightheadedness, Denies Loss of Consciousness and Denies dyspnea Respiratory: Respiratory: Reports no additional respiratory complaints and Denies dyspnea Gastrointestinal: Gastrointestinal: Reports no additional gastrointestinal complaints, Denies abdominal pain, Denies change in bowel habits and Denies change in stool character Comments: passing large blood clots Genitourinary: Genitourinary: Denies hematuria, Denies urinary frequency, Denies dysuria, Denies urinary incontinence, Denies urinary hesitancy and Denies urinary urgency Musculoskeletal: Musculoskeletal: Reports no additional musculoskeletal complaints, Denies numbness and Denies tingling Neurologic: Denies dizziness, Denies loss of vision, Denies numbness and Denies tingling Psychiatric: Psychiatric: Reports no additional psychiatric complaints Endocrine: Endocrine: Reports no additional endocrine complaints Hematologic/Lymphatic: Hematologic/Lymphatic: Reports no additional hematologic/lymphatic complaints Allergic/Immunologic: Allergic/Immunologic: Reports no additional allergic/immunologic complaints PMFSH Past Medical History Attestation statement: The following information was validated with the patient. Source: old records reviewed and nursing notes reviewed Medical History Afib Asthma CAD (coronary artery disease) History of calculus of gallbladder HLD (hyperlipidemia) Hodgkins lymphoma HTN (hypertension) Hypothyroid Pulmonary embolism Surgical History H/O angioplasty Hx of appendectomy Hx of hemorrhoidectomy (01/25/23) Social History Social History Alcohol intake: current Alcohol intake frequency: holidays/special occasions only Alcohol type: beer Patient Tobacco Use Status: Former Tobacco user Quit Date: socially smoker Tobacco use type: Cigarette Second Hand Smoke Exposure: No Advance Directives: No Advance Directives Information Provided: No Physical Exam ED Vital Signs: Vital Signs - 24 hr 02/01/23 14:00 Temperature 97.9 F Pulse Rate 51 Respiratory Rate 18 Blood Pressure 114/32 L Pulse Oximetry 96 Oxygen Delivery Method Room Air BMI result Body Mass Index 34.4 Const General: cooperative, no acute distress, alert and awake Nutritional Appearance: well nourished Orientation/consciousness: patient oriented x3 Limitations: no limitations HENMT Head: Yes normal to inspection and Yes atraumatic Ears: hearing grossly normal bilaterally and external ears normal General nose exam: Normal external nose present, no nasal discharge noted and no epistaxis Face and sinus: Yes normal facial exam, No abrasion and No laceration Mouth: Normal oral and palatal mucosa present, no drooling and no muffled voice Eyes General: appearance normal, both eyes and all related structures Periorbital: periorbital findings normal Eyelids: Yes eyelids normal Conjunctivae: conjunctivae normal Pupils: Equal, round and reactive pupils present EOM: EOMs intact bilaterally Neck Neck: Yes normal visual inspection, Yes full ROM and Yes no lymphadenopathy Chest Chest palpation & inspection: normal inspection of the chest Resp Effort & Inspection: normal respiratory effort and able to speak in complete sentences Auscultation: clear to auscultation bilaterally Cardio Rate: regular rate Rhythm: regular rhythm GI Other: large blood clots in the rectal vault Neuro General: patient oriented x3 and moves all extremities Cranial nerves: Yes Equal, round and reactive pupils present Cognition (Neuro): normal cognition Motor exam (neuro): 5/5 motor strength present throughout Sensory Exam: Normal double simultaneous stimulation for sensation Coordination: [id number] test normal Extrem General: Yes normal to inspection, Yes full ROM and Yes capillary refill normal Psych Appearance: grossly normal Mental Status: mental status grossly normal Affect: normal affect Attitude: cooperative Thought process: Normal thought process present Thought content: Normal thought content present Insight: Good insight present (Psych) Medical Decision Making Medical Decision Making MDM Narrative: Patient is a 57 year old assigned female at with a history of atrial fib on eliquis presenting to the emergency department today with rectal bleeding. Patient's physical exam showed significant bleeding / blood clots from the rectum. Patient's blood work was unremarkable. I explained my physical exam findings as well as all test results to the patient. I answered all questions asked by the patient. I informed GI of the patient. I spoke to the hospitalist team who agreed to admission. Patient verbalized agreement and understanding with this treatment plan and admission. Differential Diagnosis Differential Diagnoses: The differential diagnosis associated with the presentation includes GI bleeding Consult Healthcare Provider Management of the patient was discussed with: Hospitalist (agreed to admission) and Chief Electrician (spoke to GI) Lab Data [facility] Lab Attestation statement: I reviewed the patient's lab results. 02/01/23 14:31 02/01/23 14:31 Labs: Lab Results 02/01/23 02/01/23 02/01/23 Range/Units 14:31 14:31 15:30 WBC 8.1 (4.8-10.8) X10*3/uL RBC 4.27 (4.20-5.50) X10*6/uL Hgb 14.0 (12.0-16.0) g/dl Hct 41.3 (37.0-47.0) % MCV 96.7 (80.0-98.0) fL MCH 32.8 (27.0-33.0) pg MCHC 33.9 (31.0-35.0) g/dl RDW 12.2 (11.0-16.0) % Plt Count 299 D (160-400) X10*3/uL MPV 10.2 (9.4-12.3) fL Immature Gran % (Auto) 0.2 (0.0-0.4) % Neut % (Auto) 77.5 H (45-73) % Lymph % (Auto) 14.1 L (20-40) % [facility] % (Auto) 6.9 (2-11) % Eos % (Auto) 0.9 (0-4) % Baso % (Auto) 0.4 (0-2) % Lymph # (Auto) 1.2 (1.2-4.9) X10*3/uL [facility] # (Auto) 0.6 (0.1-1.2) X10*3/uL Eos # (Auto) 0.1 (0.0-0.4) X10*3/uL Baso # (Auto) 0.0 (0.0-0.2) X10*3/uL Abs Immat Gran (auto) 0.02 (0.00-0.03) X10*3/uL Absolute Neuts (auto) 6.3 (2.0-8.3) x10*3/uL Absolute Nucleated RBC 0.000 (0.0-0.012) X10*3/uL Nucleated RBC % (auto) 0.0 (0.0-0.2) /100WBC PT 16.8 H (10.0-13.1) SEC INR 1.4 H (0.9-1.1) APTT 41.5 H (26.0-36.4) SEC Blood Type A Positive Antibody Screen NEGATIVE Critical Care Time Critical Care Time Critical Care Time: Yes Total Critical Care Time: 45 Attestation: I spent 45 minutes of Critical Care Time with this patient. This does not include time spent on separately reported billable procedures. Discharge Plan Discharge Clinical Impression: Rectal bleeding Patient Disposition: Admitted As Inpatient
[2023-02-01 14:34] LABS: MANUAL DIFF FLAG NO
[2023-02-01 14:38] LABS: Basophils Percent Auto 0.4 % (0-2); Eosinophils Absolute Auto 0.1 X10*3/uL (0.0-0.4); Eosinophils Percent Auto 0.9 % (0-4); Hematocrit 41.3 % (37.0-47.0); Imm Gran Abs Auto 0.02 X10*3/uL (0.00-0.03); Imm Gran Pct Auto 0.2 % (0.0-0.4); Lymphocytes Absolute Auto 1.2 X10*3/uL (1.2-4.9); Lymphocytes Percent Auto 14.1 % (20-40); Mean Corpuscular HGB Conc 33.9 g/dl (31.0-35.0); Mean Corpuscular Hemoglobin 32.8 pg (27.0-33.0); Mean Corpuscular Volume 96.7 fL (80.0-98.0); Mean Platelet Volume 10.2 fL (9.4-12.3); Monocytes Absolute Auto 0.6 X10*3/uL (0.1-1.2); Monocytes Percent Auto 6.9 % (2-11); Neutrophils Absolute Auto 6.3 x10*3/uL (2.0-8.3); Neutrophils Percent Auto 77.5 % (45-73); Platelet Count 299 X10*3/uL (160-400); Red Blood Count 4.27 X10*6/uL (4.20-5.50); Red Cell Distribution Width 12.2 % (11.0-16.0); White Blood Count 8.1 X10*3/uL (4.8-10.8)
[2023-02-01 14:43] LABS: INTERNATIONAL NORM RATIO 1.4 (0.9-1.1); Prothrombin Time 16.8 SEC (10.0-13.1)
[2023-02-01 14:45] LABS: Partial Thromboplastin Time 41.5 SEC (26.0-36.4)
[2023-02-01 16:50] LABS: Alanine Aminotransferase 31 U/L (0-31); Albumin Level 4.3 g/dL (3.5-5.0); Alkaline Phosphatase 79 U/L (39-117); Anion Gap 11 (12-20); Aspartate Amino Transferase 34 U/L (5-31); Bilirubin Total 0.6 mg/dL (0.0-1.0); Blood Urea Nitrogen 10 mg/dL (9-16); Calcium 9.8 mg/dL (8.4-10.2); Carbon Dioxide 30 mmol/L (22-29); Chloride 104 mmol/L (96-108); Creatinine Clr Calc Pharmacy 83.5; Estimated Glomerular Filt Rate > 60; Glucose Random 99 mg/dL (60-115); Magnesium 2.1 mg/dL (1.6-2.6); Potassium 4.3 mmol/L (3.3-5.1); Sodium 141 mmol/L (135-145); Total Protein 7.3 g/dL (6.5-8.0)
--- NOTE | 2023-02-01 17:03 | P.HPHOSP_ITS ---
History of Present Illness Date of Service: 02/01/23 Attending physician on admission: Mikhail Saavedra Chief Complaint: Rectal blood clots 57-year-old female with history of paroxysmal atrial fibrillation is coagulated with Eliquis, hyperlipidemia, hypertension, coronary artery disease, history of Hodgkin's lymphoma in remission, hypothyroidism, history of pulmonary embolism, and mild intermittent asthma presented blood clots passing from her rectum which she noticed this morning. She underwent internal and external hemorrhoidectomy on 01/25/2023. Her Eliquis had been on hold was resumed Saturday night. She has not had any issues until today when she noted bright red mucousy clots from her rectum while standing or while in the shower. States the blood pre rectum is independent of bowel movements. States her stool is normal, soft, brown. No diarrhea. No nausea/vomiting. Does endorse bilateral lower abdominal discomfort, but no severe pain. No radiation. Described as constant. She did she her surgeon post-operatively this morning without any active bleeding from hemorrhoids ext ernally but internal rectal exam not performed, unclear if bleeding from incision site or proximal GI issue per general surgery. On arrival, VSS. H/H stable at 14.0/41.3%. Renal function and lytes normal. CT abd/pelvis pending. Review of Systems Review of Systems: General: No fevers, malaise, unintentional weight loss HEENT: No blurred vision, diplopia. No sore throat, nasal congestion, rhinorrhea, sinus pain, ear pain Cardiovascular: No chest pain, palpitations, or leg edema Respiratory: No shortness of breath, wheezing, cough GI: +abd pain, +brbpr. No nausea, vomiting, diarrhea, constipation, melena : No dysuria, hematuria, increased urinary frequency, decreased urinary output MSK: No myalgia, back pain Neuro: No headaches, weakness, paresthesias Skin: No rashes or lesions [facility] Medical History Afib Asthma CAD (coronary artery disease) History of calculus of gallbladder HLD (hyperlipidemia) Hodgkins lymphoma HTN (hypertension) Hypothyroid Pulmonary embolism Surgical History H/O angioplasty Hx of appendectomy Hx of hemorrhoidectomy (01/25/23) Social History Alcohol intake: current Alcohol intake frequency: holidays/special occasions only Alcohol type: beer Patient Tobacco Use Status: Former Tobacco user Quit Date: socially smoker Tobacco use type: Cigarette Second Hand Smoke Exposure: No Advance Directives: No Advance Directives Information Provided: No Meds Allergies Allergy/AdvReac Type Severity Reaction Status Date / Time oxycodone [OXYCODONE] Allergy Mild ITCHING Verified 02/01/23 10:48 diphenhydramine Allergy Unknown ANAPHYLAXIS Verified 02/01/23 10:48 [From BENADRYL] Active Medications: Current Medications Docusate Sodium (Docusate Sodium 100 Mg Capsule) 100 mg PO DAILY PRN PRN Reason: Constipation Ondansetron HCl (Ondansetron Hcl 4 Mg/2 Ml Vial) 4 mg IVPUSH Q8H PRN PRN Reason: Nausea and Vomiting Pharmacy Consult (Consult Rx Perform Med Rec) 1 each MISCELLANE ONCE PRN PRN Reason: Consult order Home Medications Medication Instructions Recorded Confirmed Last Taken Type albuterol sulfate 90 mcg/actuation 2 puff PO Q6H PRN wheezing 12/15/20 02/01/23 Unknown History aerosol inhaler atorvastatin 80 mg tablet 80 mg PO BEDTIME 12/15/20 02/01/23 01/31/23 History furosemide 20 mg tablet 20 mg PO DAILY 12/15/20 02/01/23 02/01/23 History levothyroxine 112 mcg tablet 112 mcg PO DAILY 12/15/20 02/01/23 02/01/23 History lorazepam 1 mg tablet 1 mg PO DAILY PRN Anxiety 12/15/20 02/01/23 Unknown History metoprolol tartrate 50 mg tablet 50 mg PO BID 12/15/20 02/01/23 02/01/23 History verapamil 120 mg tablet,extended 120 mg PO DAILY 12/15/20 02/01/23 02/01/23 History release apixaban 5 mg tablet (Eliquis) 5 mg PO BID 01/08/23 02/01/23 02/01/23 History cholecalciferol (vitamin D3) 25 25 mcg PO DAILY 02/01/23 02/01/23 02/01/23 History mcg (1,000 unit) tablet trazodone 50 mg tablet 50 mg PO BEDTIME PRN Sleep 02/01/23 02/01/23 Unknown History Physical Exam Vital Signs and Narrative: Vital Signs: Last Vital Signs Temp 97.9 F 02/01/23 14:00 Pulse 51 02/01/23 14:00 Resp 18 02/01/23 14:00 BP 114/32 L 02/01/23 14:00 Pulse Ox 96 02/01/23 14:00 O2 Del Method Room Air 02/01/23 14:00 BMI result Body Mass Index 34.4 Constitutional - Awake and Alert, No apparent distress Eyes - PERRLA, EOMI Cardiovascular - S1S2, RRR, No edema Respiratory - Normal lung expansion, Normal respiratory effort, No respiratory distress, CTA bilaterally Gastrointestinal - mild bilateral lower abd ttp without guarding or rebound. ND; +BS Extremities - no calf tenderness bilaterally, no swelling Skin - Warm/Dry Neurological - Alert & oriented x3 Psychological - Appropriate affect Results Labs 02/01/23 14:31 02/01/23 15:30 Labs: Laboratory Results - last 24 hr 02/01/23 02/01/23 02/01/23 14:31 14:31 15:30 MCV 96.7 MCH 32.8 MCHC 33.9 RDW 12.2 Plt Count 299 D MPV 10.2 Immature Gran % (Auto) 0.2 Neut % (Auto) 77.5 H Lymph % (Auto) 14.1 L Cotton % (Auto) 6.9 Eos % (Auto) 0.9 Baso % (Auto) 0.4 Lymph # (Auto) 1.2 Cotton # (Auto) 0.6 Eos # (Auto) 0.1 Baso # (Auto) 0.0 Abs Immat Gran (auto) 0.02 Absolute Neuts (auto) 6.3 Absolute Nucleated RBC 0.000 Nucleated RBC % (auto) 0.0 PT 16.8 H INR 1.4 H APTT 41.5 H Anion Gap 11 L Estim Creat Clear Calc 83.5 Estimated GFR > 60 Random Glucose 99 Calcium 9.8 Magnesium 2.1 Total Bilirubin 0.6 AST 34 H ALT 31 Alkaline Phosphatase 79 Total Protein 7.3 Albumin 4.3 Blood Type Antibody Screen 02/01/23 15:30 MCV MCH MCHC RDW Plt Count MPV Immature Gran % (Auto) Neut % (Auto) Lymph % (Auto) Cotton % (Auto) Eos % (Auto) Baso % (Auto) Lymph # (Auto) Cotton # (Auto) Eos # (Auto) Baso # (Auto) Abs Immat Gran (auto) Absolute Neuts (auto) Absolute Nucleated RBC Nucleated RBC % (auto) PT INR APTT Anion Gap Estim Creat Clear Calc Estimated GFR Random Glucose Calcium Magnesium Total Bilirubin AST ALT Alkaline Phosphatase Total Protein Albumin Blood Type A Positive Antibody Screen NEGATIVE Assessment and Plan (1) Rectal bleeding: Status: Acute Plan 57-year-old female with history of paroxysmal atrial fibrillation is coagulated with Eliquis, hyperlipidemia, hypertension, coronary artery disease, history of Hodgkin's lymphoma in remission, hypothyroidism, history of pulmonary embolism, and mild intermittent asthma to be observed for BRBPR. #BRBPR -passing clots independently from stool x 1 days. s/p internal and external hemorrhoidectomy 01/25 -H/H stable, CT abd/pelvis pending -Suspect bleeding is related to incisional site internally -Appreciate general surgery input -Discussed with Dr. Cowan. Consider colonoscopy only if needed following general surgery eval -Hold eliquis at this time -5mg vitamin K administered given INR 1.4 (though likely r/t eliquis use) -pain management #CAD/HLD -no anginal chest pain -continue lasix,statin, bb #Paroxysal atrial flutter- rate controlled -hold eliquis as above -Hold metoprolol and verapamil in setting of active GI bleeding #Hypothyroidism -continue levothyroxine #History PE -remote, hold eliquis as above #Mild intermittent asthma- no acute exacerbation -albuterol prn DVT prophylaxis- SCPs Full code Time Spent With Patient Time: Total time managing care of this patient today ____ minutes. Quality Stroke Does the patient have a stroke diagnosis?: No VTE Prior VTE?: Yes VTE Risk Level:: Medical - moderate - high VTE Device Contraindication: N/A - Device Ordered VTE Drug Contraindication: Treatment Not Indicated
[2023-02-01] MEDS: HYDROcodone Bit/Acetam 5/325 TABLET 1 TAB PO ×2 (17:29→22:04)
[2023-02-01] MEDS: Phytonadione (Vit K1) Oral 10 MG/ML AMPUL 5 MG PO (17:29)
[2023-02-01 17:58] VITALS: BP 129/49; PULSE 51; RESP 16; TEMP 36.6; O2SAT 100
--- NOTE | 2023-02-01 18:31 | PHA.MEDREC ---
Pharmacy Consult ? Medication Reconciliation Pharmacy has completed the medication reconciliation. Spoke with pt
[2023-02-01 19:22] LABS: Hematocrit 39.6 % (37.0-47.0); Hemoglobin 13.4 g/dl (12.0-16.0)
[2023-02-01 20:00] VITALS: BP 131/63; PULSE 52; RESP 18; TEMP 36.9; O2SAT 98
--- NOTE | 2023-02-01 21:32 | PC.NURSE ---
194 surgery consult called into .
--- NOTE | 2023-02-01 22:23 | PM.CNGS ---
History of Present Illness Consult details Consult date: 02/01/23 Requesting physician: Yeimi Pinedo Narrative: The pt is a 57 year old who had hemorroidectomy by DR Villagran last week. She takes anticoagulation meds for afib and this was held for 2 days postop then resumed. into Saturday started having more pain and more blood per rectum. Saw Dr Villagran in office and then was sent home with conservative care. She had more bleeding without bowel movements and passing significant clot and jelly like material. Came into the ER and gross reveraled stable hct but CT scan showed recto-meso with air and inflammation suggestive of perforation - pt complaining of some pain but no true fever and WBC normal. She was admitted and consult carried out. Plan was to do cscope but findings of CT scan had GI cancel and request gen surgery see her Review of Systems Review of Systems: Yes all other systems are reviewed and are negative PMFSH Past Medical History Medical History Afib Asthma CAD (coronary artery disease) History of calculus of gallbladder HLD (hyperlipidemia) Hodgkins lymphoma HTN (hypertension) Hypothyroid Pulmonary embolism Surgical History Surgical History H/O angioplasty Hx of appendectomy Hx of hemorrhoidectomy (01/25/23) Social History Social History Alcohol intake: current Alcohol intake frequency: holidays/special occasions only Alcohol type: beer Patient Tobacco Use Status: Former Tobacco user Quit Date: socially smoker Tobacco use type: Cigarette Second Hand Smoke Exposure: No Advance Directives: No Advance Directives Information Provided: No service: No Current occupational status: disabled Meds Allergies Allergy/AdvReac Type Severity Reaction Status Date / Time oxycodone [OXYCODONE] Allergy Mild ITCHING Verified 02/01/23 10:48 diphenhydramine Allergy Unknown ANAPHYLAXIS Verified 02/01/23 10:48 [From BENADRYL] Active Medications: Current Medications Hydrocodone Bitart/Acetaminophen (Hydrocodone Bit/Acetam 5/325 Tablet) 1 tab PO Q4H PRN PRN Reason: Pain, Moderate (Pain Scale 4-6 Last Admin: 02/01/23 22:04 Dose: 1 tab Albuterol Sulfate (Albuterol Sulfate 90 Mcg 8 Gm Inhaler) 2 puff INHALE Q6H PRN PRN Reason: wheezing Atorvastatin Calcium (Atorvastatin Calcium 80 Mg Tablet) 80 mg PO BEDTIME [facility] Last Admin: 02/01/23 20:31 Dose: Not Given Docusate Sodium (Docusate Sodium 100 Mg Capsule) 100 mg PO DAILY PRN PRN Reason: Constipation Furosemide (Furosemide 20 Mg Tablet) 20 mg PO DAILY [facility]; Protocol Levothyroxine Sodium (Levothyroxine Sodium 112 Mcg Tablet) 112 mcg PO DAILY@0600 EULOGIO Lorazepam (Lorazepam 1 Mg Tablet) 1 mg PO DAILY PRN PRN Reason: Anxiety Metoprolol Tartrate (Metoprolol Tartrate 50 Mg Tablet) 50 mg PO BID [facility]; Protocol Last Admin: 02/01/23 20:32 Dose: Not Given Ondansetron HCl (Ondansetron Hcl 4 Mg/2 Ml Vial) 4 mg IVPUSH Q8H PRN PRN Reason: Nausea and Vomiting Pharmacy Consult (Consult Rx Perform Med Rec) 1 each MISCELLANE ONCE PRN PRN Reason: Consult order Trazodone HCl (Trazodone Hcl 50 Mg Tablet) 50 mg PO BEDTIME PRN PRN Reason: Sleep Verapamil HCl (Verapamil Hcl Sr 120 Mg Tablet.Er) 120 mg PO DAILY [facility]; Protocol Vitamin D (Cholecalciferol (Vitamin D3) 25 Mcg Tablet) 25 mcg PO DAILY [facility] Home Medications Medication Instructions Recorded Confirmed Last Taken Type albuterol sulfate 90 mcg/actuation 2 puff PO Q6H PRN wheezing 12/15/20 02/01/23 Unknown History aerosol inhaler atorvastatin 80 mg tablet 80 mg PO BEDTIME 12/15/20 02/01/23 01/31/23 History furosemide 20 mg tablet 20 mg PO DAILY 12/15/20 02/01/23 02/01/23 History levothyroxine 112 mcg tablet 112 mcg PO DAILY 12/15/20 02/01/23 02/01/23 History lorazepam 1 mg tablet 1 mg PO DAILY PRN Anxiety 12/15/20 02/01/23 Unknown History metoprolol tartrate 50 mg tablet 50 mg PO BID 12/15/20 02/01/23 02/01/23 History verapamil 120 mg tablet,extended 120 mg PO DAILY 12/15/20 02/01/2323 History release apixaban 5 mg tablet (Eliquis) 5 mg PO BID 01/08/23 02/01/23 02/01/23 History cholecalciferol (vitamin D3) 25 25 mcg PO DAILY 02/01/23 02/01/23 02/01/23 History mcg (1,000 unit) tablet trazodone 50 mg tablet 50 mg PO BEDTIME PRN Sleep 02/01/23 02/01/23 Unknown History Physical Exam Vital Signs: Vital Signs: Last Vital Signs Temp 98.4 F 02/01/23 20:00 Pulse 52 02/01/23 20:00 Resp 18 02/01/23 20:00 BP 131/63 02/01/23 20:00 Pulse Ox 98 02/01/23 20:00 O2 Del Method Room Air 02/01/23 20:00 BMI result Body Mass Index 34.4 Const: General: cooperative, healthy appearing, comfortable and no acute distress HEENT: Head: Yes normal to inspection GI: Other: abdo soft nontender nondistended - just had bm and not much blood Results Labs 02/01/23 19:14 02/01/23 15:30 Labs: Abnormal lab results 02/01/23 02/01/23 02/01/23 Range/Units 14:31 14:31 15:30 Neut % (Auto) 77.5 H (45-73) % Lymph % (Auto) 14.1 L (20-40) % PT 16.8 H (10.0-13.1) SEC INR 1.4 H (0.9-1.1) APTT 41.5 H (26.0-36.4) SEC Carbon Dioxide 30 H (22-29) mmol/L Anion Gap 11 L (12-20) AST 34 H (5-31) U/L Short CBC 02/01/23 02/01/23 Range/Units 14:31 19:14 WBC 8.1 (4.8-10.8) X10*3/uL Hgb 14.0 13.4 (12.0-16.0) g/dl Hct 41.3 39.6 (37.0-47.0) % Plt Count 299 D (160-400) X10*3/uL BMP 02/01/23 15:30 Sodium 141 Potassium 4.3 Chloride 104 Carbon Dioxide 30 H BUN 10 Creatinine 0.88 Calcium 9.8 Liver Function 02/01/23 Range/Units 15:30 Total Bilirubin 0.6 (0.0-1.0) mg/dL AST 34 H (5-31) U/L ALT 31 (0-31) U/L Alkaline Phosphatase 79 (39-117) U/L Albumin 4.3 (3.5-5.0) g/dL All other labs normal. Imaging CT scan - pelvis: report reviewed and image reviewed Assessment and Plan (1) Rectal bleeding: Status: Acute Plan The pt is a 57 year old female anticoagulaed on Eliquis for Afib who is 1 week Sp hemorrhoidectomy 3 columns with ligasure now with increased bleeding - i think she had scab healed on areas which may have sloughed off at this time and now on anticoagulation khas caused bleeding. better now and pt HD stable. plan - clear liquids then npo after midlnight. check labs in am and will consider going to OR for exam under anesthesia - possible ligation or cauterize bleeding area hold antiocagulation for now consider antibx due to inflammatory changes seen on CT scan pt understands and agrees with plan Time Spent With Patient Time: Total time managing care of this patient today ___60_ minutes. Procedures Date of Service Date of Service: 02/01/23
--- NOTE | 2023-02-01 22:26 | PM.EVENT ---
Event Note Date of Service: 02/01/23 Event Note: pt seen and doing ok - more bleeding at 7pm but now just went to bathroom and not as much. ct scan showing some extraluminal air - prob due to inflammation and after surgery - pt having 5/10 pain afebrile and vss wbc ok abdo - benign rectal deferred at this time plan - clear liquids for next 4 hrs then npo and plan will be to check labs in am and probably go to OR for exam under anesthesia. Pt understands and agrees with plan will start on zosyn due to findings of CT scan Time Spent With Patient Time: Total time managing care of this patient today ____ minutes.
[2023-02-01] MEDS: Piperacillin Sodium/Tazobactam 3.375 GM in 0.9 % Sodium Chloride 50 ML IV (22:56)
[2023-02-01 23:36] VITALS: BP 122/60; PULSE 53; RESP 17; TEMP 36.5; O2SAT 99
[2023-02-02] VITALS (11 sets, daily range): BP systolic 98–145; BP diastolic 33–65; PULSE 50–69; RESP 15–20; TEMP 36.1–36.7; O2SAT 92–100
[2023-02-02] MEDS: ondansetron HCL 4 MG/2 ML VIAL IVPUSH (00:22)
[2023-02-02] MEDS: HYDROcodone Bit/Acetam 5/325 TABLET 1 TAB PO ×3 (03:35→19:14)
[2023-02-02] MEDS: Piperacillin Sodium/Tazobactam 3.375 GM in 0.9 % Sodium Chloride 50 ML IV ×4 (04:51→22:25)
[2023-02-02] MEDS: Levothyroxine Sodium 112 MCG TABLET PO (05:25)
[2023-02-02 06:59] LABS: MANUAL DIFF FLAG NO
[2023-02-02 07:07] LABS: Basophils Percent Auto 0.5 % (0-2); Eosinophils Absolute Auto 0.1 X10*3/uL (0.0-0.4); Hematocrit 37.1 % (37.0-47.0); Hemoglobin 12.5 g/dl (12.0-16.0); Imm Gran Abs Auto 0.02 X10*3/uL (0.00-0.03); Imm Gran Pct Auto 0.4 % (0.0-0.4); Lymphocytes Absolute Auto 1.7 X10*3/uL (1.2-4.9); Lymphocytes Percent Auto 29.8 % (20-40); Mean Corpuscular HGB Conc 33.7 g/dl (31.0-35.0); Mean Corpuscular Hemoglobin 32.6 pg (27.0-33.0); Mean Corpuscular Volume 96.6 fL (80.0-98.0); Mean Platelet Volume 10.5 fL (9.4-12.3); Monocytes Absolute Auto 0.7 X10*3/uL (0.1-1.2); Monocytes Percent Auto 11.9 % (2-11); Neutrophils Absolute Auto 3.1 x10*3/uL (2.0-8.3); Neutrophils Percent Auto 55.4 % (45-73); Platelet Count 284 X10*3/uL (160-400); Red Blood Count 3.84 X10*6/uL (4.20-5.50); Red Cell Distribution Width 12.3 % (11.0-16.0); White Blood Count 5.5 X10*3/uL (4.8-10.8)
[2023-02-02 07:35] LABS: Anion Gap 13 (12-20); Blood Urea Nitrogen 10 mg/dL (9-16); Calcium 9.1 mg/dL (8.4-10.2); Carbon Dioxide 28 mmol/L (22-29); Chloride 104 mmol/L (96-108); Creatinine Clr Calc Pharmacy 95.5; Estimated Glomerular Filt Rate > 60; Glucose Random 79 mg/dL (60-115); Potassium 3.9 mmol/L (3.3-5.1); Sodium 141 mmol/L (135-145)
--- NOTE | 2023-02-02 08:49 | P.PNIM_ITS ---
Subjective Subjective Date of Service: 02/02/23 Interval History: no further bleeding Physical Exam Vital Signs: Vital Signs: Last Vital Signs Temp 96.9 F 02/02/23 08:00 Pulse 50 02/02/23 08:00 Resp 18 02/02/23 08:00 BP 109/52 L 02/02/23 08:00 Pulse Ox 94 02/02/23 08:00 O2 Del Method Room Air 02/02/23 08:00 BMI result Body Mass Index 34.4 General: AO X 3, no acute distress Resp: CTA bilateral, no accessory muscles used CVS: S1,S2,RRR GI: soft, non tender, non distended Neuro: motor grossly intact, alert Psych: appropriate affect, appropriate insight Objective Data Active Medications Hydrocodone Bitart/Acetaminophen (Hydrocodone Bit/Acetam 5/325 Tablet) 1 tab PO Q4H PRN PRN Reason: Pain, Moderate (Pain Scale 4-6 Last Admin: 02/02/23 03:35 Dose: 1 tab Documented By: CONNIE Albuterol Sulfate (Albuterol Sulfate 90 Mcg 8 Gm Inhaler) 2 puff INHALE Q6H PRN PRN Reason: wheezing Atorvastatin Calcium (Atorvastatin Calcium 80 Mg Tablet) 80 mg PO BEDTIME [facility] Last Admin: 02/01/23 20:31 Dose: Not Given Documented By: CONNIE Non-Admin Reason: NPO Docusate Sodium (Docusate Sodium 100 Mg Capsule) 100 mg PO DAILY PRN PRN Reason: Constipation Furosemide (Furosemide 20 Mg Tablet) 20 mg PO DAILY [facility]; Protocol Piperacillin Sod/Tazobactam (Sod 3.375 gm/ Sodium Chloride) 50 mls @ 100 mls/hr IV Q6H [facility] Last Infusion: 02/02/23 05:21 Dose: 0 mls/hr Documented By: CONNIE Levothyroxine Sodium (Levothyroxine Sodium 112 Mcg Tablet) 112 mcg PO DAILY@0600 [facility] Last Admin: 02/02/23 05:25 Dose: 112 mcg Documented By: CONNIE Lorazepam (Lorazepam 1 Mg Tablet) 1 mg PO DAILY PRN PRN Reason: Anxiety Metoprolol Tartrate (Metoprolol Tartrate 50 Mg Tablet) 50 mg PO BID [facility]; Protocol Last Admin: 02/01/23 20:32 Dose: Not Given Documented By: CONNIE Non-Admin Reason: Decreased Heart Rate Ondansetron HCl (Ondansetron Hcl 4 Mg/2 Ml Vial) 4 mg IVPUSH Q8H PRN PRN Reason: Nausea and Vomiting Last Admin: 02/02/23 00:22 Dose: 4 mg Documented By: CONNIE Pharmacy Consult (Consult Rx Perform Med Rec) 1 each MISCELLANE ONCE PRN PRN Reason: Consult order Trazodone HCl (Trazodone Hcl 50 Mg Tablet) 50 mg PO BEDTIME PRN PRN Reason: Sleep Verapamil HCl (Verapamil Hcl Sr 120 Mg Tablet.Er) 120 mg PO DAILY [facility]; Protocol Vitamin D (Cholecalciferol (Vitamin D3) 25 Mcg Tablet) 25 mcg PO DAILY [facility] Labs 02/02/23 05:52 02/02/23 05:52 Labs: Laboratory Results - last 24 hr 02/01/23 02/01/23 02/01/23 14:31 14:31 15:30 MCV 96.7 MCH 32.8 MCHC 33.9 RDW 12.2 Plt Count 299 D MPV 10.2 Immature Gran % (Auto) 0.2 Neut % (Auto) 77.5 H Lymph % (Auto) 14.1 L [place] % (Auto) 6.9 Eos % (Auto) 0.9 Baso % (Auto) 0.4 Lymph # (Auto) 1.2 [place] # (Auto) 0.6 Eos # (Auto) 0.1 Baso # (Auto) 0.0 Abs Immat Gran (auto) 0.02 Absolute Neuts (auto) 6.3 Absolute Nucleated RBC 0.000 Nucleated RBC % (auto) 0.0 PT 16.8 H INR 1.4 H APTT 41.5 H Anion Gap 11 L Estim Creat Clear Calc 83.5 Estimated GFR > 60 Random Glucose 99 Calcium 9.8 Magnesium 2.1 Total Bilirubin 0.6 AST 34 H ALT 31 Alkaline Phosphatase 79 Total Protein 7.3 Albumin 4.3 Blood Type Antibody Screen 02/01/23 02/02/23 02/02/23 15:30 05:52 05:52 MCV 96.6 MCH 32.6 MCHC 33.7 RDW 12.3 Plt Count 284 MPV 10.5 Immature Gran % (Auto) 0.4 Neut % (Auto) 55.4 Lymph % (Auto) 29.8 [place] % (Auto) 11.9 H Eos % (Auto) 2.0 Baso % (Auto) 0.5 Lymph # (Auto) 1.7 [place] # (Auto) 0.7 Eos # (Auto) 0.1 Baso # (Auto) 0.0 Abs Immat Gran (auto) 0.02 Absolute Neuts (auto) 3.1 Absolute Nucleated RBC 0.000 Nucleated RBC % (auto) 0.0 PT INR APTT Anion Gap 13 Estim Creat Clear Calc 95.5 Estimated GFR > 60 Random Glucose 79 Calcium 9.1 D Magnesium Total Bilirubin AST ALT Alkaline Phosphatase Total Protein Albumin Blood Type A Positive Antibody Screen NEGATIVE Assessment and Plan (1) Rectal bleeding: Status: Acute Plan [address] [address] Internal Med History&Physical Signed Patient: Benita Gonzalez MR#: [id number] : 1965 Acct:[id number] Age/Sex: 57 / F Loc: [facility] [id number] ?? ? Attending Dr: Mikhail Saavedra MD cc: Mikhail Saavedra MD; Yeimi Pinedo~ History of Present Illness Date of Service: 02/01/23 Attending physician on admission: Mikhail Saavedra Chief Complaint: Rectal blood clots 57-year-old female with history of paroxysmal atrial fibrillation is coagulated with Eliquis, hyperlipidemia, hypertension, coronary artery disease, history of Hodgkin's lymphoma in remission, hypothyroidism, history of pulmonary embolism, and mild intermittent asthma presented blood clots passing from her rectum which she noticed this morning.? She underwent internal and external hemorrhoidectomy on 01/25/2023.? Her Eliquis had been on hold was resumed Saturday night.? She has not had any issues until today when she noted bright red mucousy clots from her rectum while standing or while in the shower. States the blood pre rectum is independent of bowel movements. States her stool is normal, soft, brown. No diarrhea. No nausea/vomiting. Does endorse bilateral lower abdominal discomfort, but no severe pain. No radiation. Described as constant. She did she her surgeon post-operatively this morning without any active bleeding from hemorrhoids externally but internal rectal exam not performed, unclear if bleeding from incision site or proximal GI issue per general surgery. On arrival, VSS. H/H stable at 14.0/41.3%. Renal function and lytes normal. CT abd/pelvis pending. Review of Systems Review of Systems:?? General: No fevers, malaise, unintentional weight loss HEENT: No blurred vision, diplopia. No sore throat, nasal congestion, rhinorrhea, sinus pain, ear pain Cardiovascular: No chest pain, palpitations, or leg edema Respiratory: No shortness of breath, wheezing, cough GI: +abd pain, +brbpr. No nausea, vomiting, diarrhea, constipation, melena : No dysuria, hematuria, increased urinary frequency, decreased urinary output MSK: No myalgia, back pain Neuro: No headaches, weakness, paresthesias Skin: No rashes or lesions PMFSH Medical History? Afib Asthma CAD (coronary artery disease) History of calculus of gallbladder HLD (hyperlipidemia) Hodgkins lymphoma HTN (hypertension) Hypothyroid Pulmonary embolism Surgical History? H/O angioplasty Hx of appendectomy Hx of hemorrhoidectomy (01/25/23) Social History? Alcohol intake:? current Alcohol intake frequency: holidays/special occasions only Alcohol type: beer Patient Tobacco Use Status:? Former Tobacco user Quit Date: socially smoker Tobacco use type:? Cigarette Second Hand Smoke Exposure:? No Advance Directives:? No Advance Directives Information Provided:? No Meds Allergies Allergy/AdvReac Type Severity Reaction Status Date / Time oxycodone [OXYCODONE] Allergy Mild ITCHING Verified 02/01/23 10:48 diphenhydramine Allergy Unknown ANAPHYLAXIS Verified 02/01/23 10:48 [From BENADRYL] ? Active Medications: Current Medications Docusate Sodium (Docusate Sodium 100 Mg Capsule)? 100 mg PO DAILY PRN PRN Reason: Constipation Ondansetron HCl (Ondansetron Hcl 4 Mg/2 Ml Vial)? 4 mg IVPUSH Q8H PRN PRN Reason: Nausea and Vomiting Pharmacy Consult (Consult Rx Perform Med Rec)? 1 each MISCELLANE ONCE PRN PRN Reason: Consult order Home Medications ?Medication ?Instructions ?Recorded ?Confirmed ?Last Taken ?Type albuterol sulfate 90 mcg/actuation 2 puff PO Q6H PRN wheezing 12/15/20 02/01/23 Unknown History aerosol inhaler ? atorvastatin 80 mg tablet 80 mg PO BEDTIME 12/15/20 02/01/23 01/31/23 History furosemide 20 mg tablet 20 mg PO DAILY 12/15/20 02/01/23 02/01/23 History levothyroxine 112 mcg tablet 112 mcg PO DAILY 12/15/20 02/01/23 02/01/23 History lorazepam 1 mg tablet 1 mg PO DAILY PRN Anxiety 12/15/20 02/01/23 Unknown History metoprolol tartrate 50 mg tablet 50 mg PO BID 12/15/20 02/01/23 02/01/23 History verapamil 120 mg tablet,extended 120 mg PO DAILY 12/15/20 02/01/23 02/01/23 His tory release ? apixaban 5 mg tablet (Eliquis) 5 mg PO BID 01/08/23 02/01/23 02/01/23 History cholecalciferol (vitamin D3) 25 25 mcg PO DAILY 02/01/23 02/01/23 02/01/23 History mcg (1,000 unit) tablet ? trazodone 50 mg tablet 50 mg PO BEDTIME PRN Sleep 02/01/23 02/01/23 Unknown History Physical Exam Vital Signs and Narrative:?? Vital Signs: Last Vital Signs Temp ? 97.9 F? 02/01/23 14:00 Pulse? 51? 02/01/23 14:00 Resp ? 18? 02/01/23 14:00 BP ? 114/32 L? 02/01/23 14:00 Pulse Ox ? 96? 02/01/23 14:00 O2 Del Method? Room Air? 02/01/23 14:00 BMI result Body Mass Index ? 34.4? Constitutional - Awake and Alert, No apparent distress Eyes - PERRLA, EOMI Cardiovascular - S1S2, RRR, No edema Respiratory - Normal lung expansion, Normal respiratory effort, No respiratory distress, CTA bilaterally Gastrointestinal - mild bilateral lower abd ttp without guarding or rebound. ND; +BS Extremities - no calf tenderness bilaterally, no swelling Skin - Warm/Dry Neurological - Alert & oriented x3 Psychological - Appropriate affect Results Labs 02/01/23 14:31? 02/01/23 15:30? Labs: Laboratory Results - last 24 hr ? 02/01/23 02/01/23 02/01/23 ? 14:31 14:31 15:30 MCV ?96.7 ? ? MCH ?32.8 ? ? MCHC ?33.9 ? ? RDW ?12.2 ?B ? Plt Count ?299? D ? ? MPV ?10.2 ? ? Immature Gran % (Auto) ?0.2 ? ? Neut % (Auto) ?77.5 H ? ? Lymph % (Auto) ?14.1 L ? ? [place] % (Auto) ?6.9 ? ? Eos % (Auto) ?0.9 ? ? Baso % (Auto) ?0.4 ? ? Lymph # (Auto) ?1.2 ? ? [place] # (Auto) ?0.6 ? ? Eos # (Auto) ?0.1 ? ? Baso # (Auto) ?0.0 ? ? Abs Immat Gran (auto) ?0.02 ? ? Absolute Neuts (auto) ?6.3 ? ? Absolute Nucleated RBC ?0.000 ? ? Nucleated RBC % (auto) ?0.0 ? ? PT ? ?16.8 H ? INR ? ?1.4 H ? APTT ? ?41.5 H ? D Anion Gap ? ? ?11 L Estim Creat Clear Calc ? ? ?83.5 Estimated GFR ? ? ?> 60 Random Glucose ? ? ?99 Calcium ? ? ?9.8 Magnesium ? ? ?2.1 Total Bilirubin ? ? ?0.6 AST ? ? ?34 H ALT ? ? ?31 Alkaline Phosphatase ? ? ?79 Total Protein ? ? ?7.3 Albumin ? ? ?4.3 Blood TypeB ? ? ? Antibody Screen ? 02/01/23 ? 15:30 MCV ? MCH ? MCHC ? RDW ? Plt Count ? MPV ? Immature Gran % (Auto) ? Neut % (Auto) ? Lymph % (Auto) ? [place] % (Auto) ? Eos % (Auto) ? Baso % (Auto) ? Lymph # (Auto) ? [place] # (Auto) ? Eos # (Auto) ? Baso # (Auto) ? Abs Immat Gran (auto) ? Absolute Neuts (auto) ? Absolute Nucleated RBC ? Nucleated RBC % (auto) ? PT ? INR ? APTT ? Anion Gap ? Estim Creat Clear Calc ? Estimated GFR ? D Random Glucose ? Calcium ? Magnesium ? Total Bilirubin ? AST ? ALT ? Alkaline Phosphatase ? Total Protein ? Albumin ? Blood Type ?A Positive Antibody Screen ?NEGATIVE Assessment and Plan (1) Rectal bleeding: ?Status:?Acute Plan 57F PMH paroxysmal atrial fibrillation is coagulated with Eliquis, hyperlipidemia, hypertension, coronary artery disease, history of Hodgkin's lymphoma in remission, hypothyroidism, history of pulmonary embolism, and mild intermittent asthma presented with BRBPR. BRBPR -passing clots independently from stool x 1 days. s/p internal and external hemorrhoidectomy 01/25/23 -H/H stable, CT abd/pelvis: There is diffuse rectal wall thickening with extraluminal free air in the mesorectal space similar suggesting a rectal perforation. When clinically appropriate, recommend correlation with direct inspection to ensure no underlying neoplasm. Indeterminate subcentimeter sclerotic lesion in the posterior aspect of the right iliac bone new from remote priors. Consider further evaluation with nuclear medicine bone scan, particularly if any history of underlying malignancy. -plan for exploration in OR today CAD/HLD no anginal chest pain continue lasix,statin, bb Paroxysal atrial flutter- rate controlled -hold eliquis metoprolol and verapamil Hypothyroidism levothyroxine History PE remote, hold eliquis as above Mild intermittent asthma- no acute exacerbation albuterol prn DVT prophylaxis- SCPs -due to brbpr Full code reason for continued hospitalization: work up for bleeding inpatient due to volume of blood, need for A/C Time Spent With Patient Time: Total time managing care of this patient today ____ minutes. Quality Stroke Does the patient have a stroke diagnosis?: No VTE Prior VTE?: Yes VTE Risk Level:: Medical - moderate - high VTE Device Contraindication: N/A - Device Ordered VTE Drug Contraindication: Treatment Not Indicated
[2023-02-02] MEDS: Cholecalciferol (Vitamin D3) 25 MCG TABLET PO (09:57)
[2023-02-02] MEDS: Furosemide 20 MG TABLET PO (09:57)
[2023-02-02] MEDS: Lactated Ringers 500 ML IV (12:18)
--- NOTE | 2023-02-02 13:33 | HO.ANESPROP2 ---
[facility] Active Problems Active Problems: All Active Problems (Updated 02/01/23 @ 16:26 by BABATUNDE Moya) Rectal bleeding (Acute) Low back pain (Acute) Fall (Acute) Shortness of breath after COVID-19 vaccination (Acute) Past Medical History Medical History Afib Asthma CAD (coronary artery disease) History of calculus of gallbladder HLD (hyperlipidemia) Hodgkins lymphoma HTN (hypertension) Hypothyroid Pulmonary embolism Family History Family history of problems with anesthesia: No Surgical History Surgical History H/O angioplasty Hx of appendectomy Hx of hemorrhoidectomy (01/25/23) History of Problems with Anesthesia: No Social History Social History Alcohol intake: current Alcohol intake frequency: holidays/special occasions only Alcohol type: beer Patient Tobacco Use Status: Former Tobacco user Quit Date: socially smoker Tobacco use type: Cigarette Second Hand Smoke Exposure: No Advance Directives: No Advance Directives Information Provided: No Meds Allergies Allergy/AdvReac Type Severity Reaction Status Date / Time oxycodone [OXYCODONE] Allergy Mild ITCHING Verified 02/01/23 10:48 diphenhydramine Allergy Unknown ANAPHYLAXIS Verified 02/01/23 10:48 [From BENADRYL] Active Medications: Current Medications Hydrocodone Bitart/Acetaminophen (Hydrocodone Bit/Acetam 5/325 Tablet) 1 tab PO Q4H PRN PRN Reason: Pain, Moderate (Pain Scale 4-6 Last Admin: 02/02/23 03:35 Dose: 1 tab Albuterol Sulfate (Albuterol Sulfate 90 Mcg 8 Gm Inhaler) 2 puff INHALE Q6H PRN PRN Reason: wheezing Atorvastatin Calcium (Atorvastatin Calcium 80 Mg Tablet) 80 mg PO BEDTIME [facility] Last Admin: 02/01/23 20:31 Dose: Not Given Docusate Sodium (Docusate Sodium 100 Mg Capsule) 100 mg PO DAILY PRN PRN Reason: Constipation Furosemide (Furosemide 20 Mg Tablet) 20 mg PO DAILY [facility]; Protocol Last Admin: 02/02/23 09:57 Dose: 20 mg Piperacillin Sod/Tazobactam (Sod 3.375 gm/ Sodium Chloride) 50 mls @ 100 mls/hr IV Q6H [facility] Last Infusion: 02/02/23 11:08 Dose: Infused Levothyroxine Sodium (Levothyroxine Sodium 112 Mcg Tablet) 112 mcg PO DAILY@0600 [facility] Last Admin: 02/02/23 05:25 Dose: 112 mcg Lorazepam (Lorazepam 1 Mg Tablet) 1 mg PO DAILY PRN PRN Reason: Anxiety Metoprolol Tartrate (Metoprolol Tartrate 50 Mg Tablet) 50 mg PO BID [facility]; Protocol Last Admin: 02/02/23 09:50 Dose: Not Given Ondansetron HCl (Ondansetron Hcl 4 Mg/2 Ml Vial) 4 mg IVPUSH Q8H PRN PRN Reason: Nausea and Vomiting Last Admin: 02/02/23 00:22 Dose: 4 mg Pharmacy Consult (Consult Rx Perform Med Rec) 1 each MISCELLANE ONCE PRN PRN Reason: Consult order Trazodone HCl (Trazodone Hcl 50 Mg Tablet) 50 mg PO BEDTIME PRN PRN Reason: Sleep Verapamil HCl (Verapamil Hcl Sr 120 Mg Tablet.Er) 120 mg PO DAILY [facility]; Protocol Last Admin: 02/02/23 09:50 Dose: Not Given Vitamin D (Cholecalciferol (Vitamin D3) 25 Mcg Tablet) 25 mcg PO DAILY [facility] Last Admin: 02/02/23 09:57 Dose: 25 mcg Home Medications Medication Instructions Recorded Confirmed Last Taken Type albuterol sulfate 90 mcg/actuation 2 puff PO Q6H PRN wheezing 12/15/20 02/01/23 Unknown History aerosol inhaler atorvastatin 80 mg tablet 80 mg PO BEDTIME 12/15/20 02/01/23 01/31/23 History furosemide 20 mg tablet 20 mg PO DAILY 12/15/20 02/01/23 02/01/23 History levothyroxine 112 mcg tablet 112 mcg PO DAILY 12/15/20 02/01/23 02/01/23 History lorazepam 1 mg tablet 1 mg PO DAILY PRN Anxiety 12/15/20 02/01/23 Unknown History metoprolol tartrate 50 mg tablet 50 mg PO BID 12/15/20 02/01/23 02/01/23 History verapamil 120 mg tablet,extended 120 mg PO DAILY 12/15/20 02/01/23 02/01/23 History release apixaban 5 mg tablet (Eliquis) 5 mg PO BID 01/08/23 02/01/23 02/01/23 History cholecalciferol (vitamin D3) 25 25 mcg PO DAILY 02/01/23 02/01/23 02/01/23 History mcg (1,000 unit) tablet trazodone 50 mg tablet 50 mg PO BEDTIME PRN Sleep 02/01/23 02/01/23 Unknown History Exam Exam Date and Time: February 02, 2023 1333 Height,Weight and Vital Signs: Height 5 ft 7 in Weight 99.79 kg Last Vital Signs Temp 98.0 F 02/02/23 11:37 Pulse 50 02/02/23 11:37 Resp 18 02/02/23 11:37 BP 126/57 L 02/02/23 11:37 Pulse Ox 98 02/02/23 11:37 O2 Del Method Room Air 02/02/23 11:37 Pertinent Lab Results Pertinent Lab Results: Laboratory Tests 02/01/23 02/01/23 02/01/23 14:31 14:31 15:30 WBC 8.1 RBC 4.27 Hgb 14.0 Hct 41.3 MCV 96.7 MCH 32.8 MCHC 33.9 RDW 12.2 Plt Count 299 D MPV 10.2 Immature Gran % (Auto) 0.2 Neut % (Auto) 77.5 H Lymph % (Auto) 14.1 L [place] % (Auto) 6.9 Eos % (Auto) 0.9 Baso % (Auto) 0.4 Lymph # (Auto) 1.2 [place] # (Auto) 0.6 Eos # (Auto) 0.1 Baso # (Auto) 0.0 Abs Immat Gran (auto) 0.02 Absolute Neuts (auto) 6.3 Absolute Nucleated RBC 0.000 Nucleated RBC % (auto) 0.0 PT 16.8 H INR 1.4 H APTT 41.5 H Sodium 141 Potassium 4.3 Chloride 104 Carbon Dioxide 30 H Anion Gap 11 L BUN 10 Creatinine 0.88 Estim Creat Clear Calc 83.5 Estimated GFR > 60 Random Glucose 99 Calcium 9.8 Magnesium 2.1 Total Bilirubin 0.6 AST 34 H ALT 31 Alkaline Phosphatase 79 Total Protein 7.3 Albumin 4.3 Blood Type Antibody Screen 02/01/23 02/01/23 02/02/23 15:30 19:14 05:52 WBC 5.5 RBC 3.84 L Hgb 13.4 12.5 Hct 39.6 37.1 MCV 96.6 MCH 32.6 MCHC 33.7 RDW 12.3 Plt Count 284 MPV 10.5 Immature Gran % (Auto) 0.4 Neut % (Auto) 55.4 Lymph % (Auto) 29.8 [place] % (Auto) 11.9 H Eos % (Auto) 2.0 Baso % (Auto) 0.5 Lymph # (Auto) 1.7 [place] # (Auto) 0.7 Eos # (Auto) 0.1 Baso # (Auto) 0.0 Abs Immat Gran (auto) 0.02 Absolute Neuts (auto) 3.1 Absolute Nucleated RBC 0.000 Nucleated RBC % (auto) 0.0 PT INR APTT Sodium Potassium Chloride Carbon Dioxide Anion Gap BUN Creatinine Estim Creat Clear Calc Estimated GFR Random Glucose Calcium Magnesium Total Bilirubin AST ALT Alkaline Phosphatase Total Protein Albumin Blood Type A Positive Antibody Screen NEGATIVE 02/02/23 05:52 WBC RBC Hgb Hct MCV MCH MCHC RDW Plt Count MPV Immature Gran % (Auto) Neut % (Auto) Lymph % (Auto) [place] % (Auto) Eos % (Auto) Baso % (Auto) Lymph # (Auto) [place] # (Auto) Eos # (Auto) Baso # (Auto) Abs Immat Gran (auto) Absolute Neuts (auto) Absolute Nucleated RBC Nucleated RBC % (auto) PT INR APTT Sodium 141 Potassium 3.9 Chloride 104 Carbon Dioxide 28 Anion Gap 13 BUN 10 Creatinine 0.77 Estim Creat Clear Calc 95.5 Estimated GFR > 60 Random Glucose 79 Calcium 9.1 D Magnesium Total Bilirubin AST ALT Alkaline Phosphatase Total Protein Albumin Blood Type Antibody Screen Airway Mallampati Class: II TM Dist: >3cm Neck ROM: Full Assessment and Plan Assessment Anesthesia Assessment: Anesthesia Plan Discussed and Chart Reviewed Final Anesthetic Review Family History of Problems with Anesthesia: No History of Problems with Anesthesia: No NPO: Yes ASA Class: II and Emergency Final Preanesthetic Review: No Changes in Pt Med Stat, Meds/Allgs Chart Reviewed, Consent Obtained/Reviewed and Anes Risks/Benef Reviewed Patient Risk: Low Procedure Risk: Low Anesthetic Plan Anesthetic Plan: GA Disposition: Standard PACU
--- NOTE | 2023-02-02 13:50 | P.CONAN_ITS ---
[facility] Active Problems Active Problems: All Active Problems (Updated 02/01/23 @ 16:26 by BAABTUNDE Moya) Rectal bleeding (Acute) Low back pain (Acute) Fall (Acute) Shortness of breath after COVID-19 vaccination (Acute) Past Medical History Medical History Afib Asthma CAD (coronary artery disease) History of calculus of gallbladder HLD (hyperlipidemia) Hodgkins lymphoma HTN (hypertension) Hypothyroid Pulmonary embolism Family History Family history of problems with anesthesia: No Surgical History Surgical History H/O angioplasty Hx of appendectomy Hx of hemorrhoidectomy (01/25/23) History of Problems with Anesthesia: No Social History Social History Alcohol intake: current Alcohol intake frequency: holidays/special occasions only Alcohol type: beer Patient Tobacco Use Status: Former Tobacco user Quit Date: socially smoker Tobacco use type: Cigarette Second Hand Smoke Exposure: No Advance Directives: No Advance Directives Information Provided: No Meds Allergies Allergy/AdvReac Type Severity Reaction Status Date / Time oxycodone [OXYCODONE] Allergy Mild ITCHING Verified 02/01/23 10:48 diphenhydramine Allergy Unknown ANAPHYLAXIS Verified 02/01/23 10:48 [From BENADRYL] Active Medications: Current Medications Hydrocodone Bitart/Acetaminophen (Hydrocodone Bit/Acetam 5/325 Tablet) 1 tab PO Q4H PRN PRN Reason: Pain, Moderate (Pain Scale 4-6 Last Admin: 02/02/23 03:35 Dose: 1 tab Albuterol Sulfate (Albuterol Sulfate 90 Mcg 8 Gm Inhaler) 2 puff INHALE Q6H PRN PRN Reason: wheezing Atorvastatin Calcium (Atorvastatin Calcium 80 Mg Tablet) 80 mg PO BEDTIME EULOGIO Last Admin: 02/01/23 20:31 Dose: Not Given Docusate Sodium (Docusate Sodium 100 Mg Capsule) 100 mg PO DAILY PRN PRN Reason: Constipation Fentanyl (Fentanyl Citrate/Pf 100 Mcg/2 Ml Vial) 50 mcg IVPUSH Q5M PRN; Protocol PRN Reason: Pain, Severe (Pain Scale 7-10) Furosemide (Furosemide 20 Mg Tablet) 20 mg PO DAILY EULOGIO; Protocol Last Admin: 02/02/23 09:57 Dose: 20 mg Piperacillin Sod/Tazobactam (Sod 3.375 gm/ Sodium Chloride) 50 mls @ 100 mls/hr IV Q6H [facility] Last Infusion: 02/02/23 11:08 Dose: Infused Levothyroxine Sodium (Levothyroxine Sodium 112 Mcg Tablet) 112 mcg PO DAILY@0600 [facility] Last Admin: 02/02/23 05:25 Dose: 112 mcg Lorazepam (Lorazepam 1 Mg Tablet) 1 mg PO DAILY PRN PRN Reason: Anxiety Metoprolol Tartrate (Metoprolol Tartrate 50 Mg Tablet) 50 mg PO BID [facility]; Protocol Last Admin: 02/02/23 09:50 Dose: Not Given Ondansetron HCl (Ondansetron Hcl 4 Mg/2 Ml Vial) 4 mg IVPUSH Q8H PRN PRN Reason: Nausea and Vomiting Last Admin: 02/02/23 00:22 Dose: 4 mg Ondansetron HCl (Ondansetron Hcl 4 Mg/2 Ml Vial) 4 mg IVPUSH ONCE PRN PRN Reason: Nausea and Vomiting Pharmacy Consult (Consult Rx Perform Med Rec) 1 each MISCELLANE ONCE PRN PRN Reason: Consult order Trazodone HCl (Trazodone Hcl 50 Mg Tablet) 50 mg PO BEDTIME PRN PRN Reason: Sleep Verapamil HCl (Verapamil Hcl Sr 120 Mg Tablet.Er) 120 mg PO DAILY [facility]; Protocol Last Admin: 02/02/23 09:50 Dose: Not Given Vitamin D (Cholecalciferol (Vitamin D3) 25 Mcg Tablet) 25 mcg PO DAILY [facility] Last Admin: 02/02/23 09:57 Dose: 25 mcg Home Medications Medication Instructions Recorded Confirmed Last Taken Type albuterol sulfate 90 mcg/actuation 2 puff PO Q6H PRN wheezing 12/15/20 02/01/23 Unknown History aerosol inhaler atorvastatin 80 mg tablet 80 mg PO BEDTIME 12/15/20 02/01/23 01/31/23 History furosemide 20 mg tablet 20 mg PO DAILY 12/15/20 02/01/23 02/01/23 History levothyroxine 112 mcg tablet 112 mcg PO DAILY 12/15/20 02/01/23 02/01/23 History lorazepam 1 mg tablet 1 mg PO DAILY PRN Anxiety 12/15/20 02/01/23 Unknown History metoprolol tartrate 50 mg tablet 50 mg PO BID 12/15/20 02/01/23 02/01/23 History verapamil 120 mg tablet,extended 120 mg PO DAILY 12/15/20 02/01/23 02/01/23 History release apixaban 5 mg tablet (Eliquis) 5 mg PO BID 01/08/23 02/01/23 02/01/23 History cholecalciferol (vitamin D3) 25 25 mcg PO DAILY 02/01/23 02/01/23 02/01/23 History mcg (1,000 unit) tablet trazodone 50 mg tablet 50 mg PO BEDTIME PRN Sleep 02/01/23 02/01/23 Unknown His tory Exam Exam Date and Time: February 02, 2023 1350 Height,Weight and Vital Signs: Height 5 ft 7 in Weight 99.79 kg Last Vital Signs Temp 98.0 F 02/02/23 11:37 Pulse 50 02/02/23 11:37 Resp 18 02/02/23 11:37 BP 126/57 L 02/02/23 11:37 Pulse Ox 98 02/02/23 11:37 O2 Del Method Room Air 02/02/23 11:37 Pertinent Lab Results Pertinent Lab Results: Laboratory Tests 02/01/23 02/01/23 02/01/23 14:31 14:31 15:30 WBC 8.1 RBC 4.27 Hgb 14.0 Hct 41.3 MCV 96.7 MCH 32.8 MCHC 33.9 RDW 12.2 Plt Count 299 D MPV 10.2 Immature Gran % (Auto) 0.2 Neut % (Auto) 77.5 H Lymph % (Auto) 14.[address] [place] % (Auto) 6.9 Eos % (Auto) 0.9 Baso % (Auto) 0.4 Lymph # (Auto) 1.2 [facility] # (Auto) 0.6 Eos # (Auto) 0.1 Baso # (Auto) 0.0 Abs Immat Gran (auto) 0.02 Absolute Neuts (auto) 6.3 Absolute Nucleated RBC 0.000 Nucleated RBC % (auto) 0.0 PT 16.8 H INR 1.4 H APTT 41.5 H Sodium 141 Potassium 4.3 Chloride 104 Carbon Dioxide 30 H Anion Gap 11 L BUN 10 Creatinine 0.88 Estim Creat Clear Calc 83.5 Estimated GFR > 60 Random Glucose 99 Calcium 9.8 Magnesium 2.1 Total Bilirubin 0.6 AST 34 H ALT 31 Alkaline Phosphatase 79 Total Protein 7.3 Albumin 4.3 Blood Type Antibody Screen 02/01/23 02/01/23 02/02/23 15:30 19:14 05:52 WBC 5.5 RBC 3.84 L Hgb 13.4 12.5 Hct 39.6 37.1 MCV 96.6 MCH 32.6 MCHC 33.7 RDW 12.3 Plt Count 284 MPV 10.5 Immature Gran % (Auto) 0.4 Neut % (Auto) 55.4 Lymph % (Auto) 29.8 [facility] % (Auto) 11.9 H Eos % (Auto) 2.0 Baso % (Auto) 0.5 Lymph # (Auto) 1.7 [facility] # (Auto) 0.7 Eos # (Auto) 0.1 Baso # (Auto) 0.0 Abs Immat Gran (auto) 0.02 Absolute Neuts (auto) 3.1 Absolute Nucleated RBC 0.000 Nucleated RBC % (auto) 0.0 PT INR APTT Sodium Potassium Chloride Carbon Dioxide Anion Gap BUN Creatinine Estim Creat Clear Calc Estimated GFR Random Glucose Calcium Magnesium Total Bilirubin AST ALT Alkaline Phosphatase Total Protein Albumin Blood Type A Positive Antibody Screen NEGATIVE 02/02/23 05:52 WBC RBC Hgb Hct MCV MCH MCHC RDW Plt Count MPV Immature Gran % (Auto) Neut % (Auto) Lymph % (Auto) [facility] % (Auto) Eos % (Auto) Baso % (Auto) Lymph # (Auto) [facility] # (Auto) Eos # (Auto) Baso # (Auto) Abs Immat Gran (auto) Absolute Neuts (auto) Absolute Nucleated RBC Nucleated RBC % (auto) PT INR APTT Sodium 141 Potassium 3.9 Chloride 104 Carbon Dioxide 28 Anion Gap 13 BUN 10 Creatinine 0.77 Estim Creat Clear Calc 95.5 Estimated GFR > 60 Random Glucose 79 Calcium 9.1 D Magnesium Total Bilirubin AST ALT Alkaline Phosphatase Total Protein Albumin Blood Type Antibody Screen Assessment and Plan Final Anesthetic Review Family History of Problems with Anesthesia: No History of Problems with Anesthesia: No ASA Class: III and Emergency
--- NOTE | 2023-02-02 13:51 | MHC.CM.PN ---
PATIENT LIVES ALONE HAS A CANE BUT DOES NOT NEED (FROM A PREVIOUS SURGERY) HAS RN VISITS TWICE PER YEAR FROM HER MANAGED INSURANCE PLAN. SURGICAL INTERVENTION PLANNED FOR TODAY OR TOMORROW JOSE 02/02/23 IN CHART
[2023-02-02] MEDS: fentaNYL citrate/PF 100 MCG/2 ML VIAL 50 MCG IVPUSH (14:39)
--- NOTE | 2023-02-02 15:07 | PM.EVENT ---
Event Note Date of Service: 02/02/23 Event Note: patient's hemoglobin today 12 down from 14 yesterday but overnight not as much bleeding. She went to the operating room to have an exam under anesthesia and the tissue all look generally good there was a little bleeding slight area who is with manipulation and rectal exam that area was cauterized. The integrity of the tissue otherwise looks appropriate for 1 week postop hemorrhoidectomy. Will discuss with the met team about DC home and follow-up with Dr. Villagran as an outpatient next week. Would plan on continuing to hold her anticoagulation for couple more days and suggest DC home on another 5-[address] scan showed perirectal inflammation some air in the meso rectum but on exam no significantly worrisome findings were noted. Time Spent With Patient Time: Total time managing care of this patient today ____ minutes.
[2023-02-02] MEDS: Docusate Sodium 100 MG CAPSULE PO (19:16)
[2023-02-02] MEDS: Atorvastatin Calcium 80 MG TABLET PO (20:29)
[2023-02-03] MEDS: HYDROcodone Bit/Acetam 5/325 TABLET 1 TAB PO ×2 (00:11→08:08)
[2023-02-03 03:20] VITALS: BP 126/61; PULSE 65; RESP 18; TEMP 36.6; O2SAT 99
[2023-02-03] MEDS: Piperacillin Sodium/Tazobactam 3.375 GM in 0.9 % Sodium Chloride 50 ML IV (04:21)
[2023-02-03] MEDS: Levothyroxine Sodium 112 MCG TABLET PO (05:54)
[2023-02-03 06:51] LABS: Hematocrit 38.3 % (37.0-47.0); Hemoglobin 13.1 g/dl (12.0-16.0); Mean Corpuscular HGB Conc 34.2 g/dl (31.0-35.0); Mean Corpuscular Hemoglobin 32.8 pg (27.0-33.0); Mean Platelet Volume 10.6 fL (9.4-12.3); Platelet Count 323 X10*3/uL (160-400); Red Blood Count 3.99 X10*6/uL (4.20-5.50); Red Cell Distribution Width 11.9 % (11.0-16.0); White Blood Count 9.1 X10*3/uL (4.8-10.8)
[2023-02-03 06:56] LABS: Anion Gap 11 (12-20); Blood Urea Nitrogen 9 mg/dL (9-16); Calcium 9.6 mg/dL (8.4-10.2); Carbon Dioxide 28 mmol/L (22-29); Chloride 107 mmol/L (96-108); Creatinine Clr Calc Pharmacy 96.6; Estimated Glomerular Filt Rate > 60; Glucose Fasting 143 mg/dL (60-99); Potassium 4.4 mmol/L (3.3-5.1); Sodium 142 mmol/L (135-145)
[2023-02-03 07:10] VITALS: BP 119/64; PULSE 56; RESP 18; TEMP 36.6; O2SAT 96
[2023-02-03] MEDS: Furosemide 20 MG TABLET PO (08:08)
[2023-02-03] MEDS: Cholecalciferol (Vitamin D3) 25 MCG TABLET PO (08:08)
--- NOTE | 2023-02-03 08:39 | PM.DS ---
DS: Providers Provider Date of Service: 02/03/23 Date of admission: 02/01/23 16:58 Primary care physician: Cindy Stein MD Consults: 02/01/23 19:16 Consult to General Surgery Stat Consulting Provider: [facility] General Surgeons Reason for consultation: rectal bleeding. ?rectal perforation DS: Diagnosis Discharge Diagnosis (1) Rectal bleeding: Status: Acute DS: Summary Hospital Course Hospital Course: from initial hpi: Chief Complaint: Rectal blood clots 57-year-old female with history of paroxysmal atrial fibrillation is coagulated with Eliquis, hyperlipidemia, hypertension, coronary artery disease, history of Hodgkin's lymphoma in remission, hypothyroidism, history of pulmonary embolism, and mild intermittent asthma presented blood clots passing from her rectum which she noticed this morning.? She underwent internal and external hemorrhoidectomy on 01/25/2023.? Her Eliquis had been on hold was resumed Saturday night.? She has not had any issues until today when she noted bright red mucousy clots from her rectum while standing or while in the shower. States the blood pre rectum is independent of bowel movements. States her stool is normal, soft, brown. No diarrhea. No nausea/vomiting. Does endorse bilateral lower abdominal discomfort, but no severe pain. No radiation. Described as constant. She did she her surgeon post-operatively this morning without any active bleeding from hemorrhoids externally but internal rectal exam not performed, unclear if bleeding from incision site or proximal GI issue per general surgery. On arrival, VSS. H/H stable at 14.0/41.3%. Renal function and lytes normal. CT abd/pelvis pending. hospital course: patient was admitted for bright red blood per rectum, no significant blood loss anemia, underwent sigmoidoscopy and cauterization of light bleeding area. no further bleeding. eliquis will be held for a couple more days, and patietn will be treated with [address] of [address] abd showed indeterminat subcentimeter sclerotic lesion in posterior right iliac bone, can consider nuc med study as outpatient. for CAD was continued on lasixl, statin, betab saima, for paroxysmal a flutter was continued on metoprolol and verapamil, for hypothyroid was continued on synthtoid, for history fo pe will restart eliquis in a couple days, for mild intermitted asthma continued on albuterol prn. patient is feeling ebtter and will be discharged home. Time Spent with Patient Time attestation: Total time managing care of this patient today ____ minutes. Discharge coordination time: Greater than 30 minutes Quality: Safe Use of Opioids Does Pt have an Active Cancer Diagnosis on the Problem List?: No Quality: Stroke Does the patient have a stroke diagnosis?: No Physical Exam Vital Signs: Vital Signs: Last Vital Signs Temp 98 F 02/03/23 07:10 Pulse 56 02/03/23 07:10 Resp 18 02/03/23 07:10 BP 119/64 02/03/23 07:10 Pulse Ox 96 02/03/23 07:10 O2 Del Method Room Air 02/03/23 07:10 O2 Flow Rate 2 02/02/23 14:44 BMI result Body Mass Index 34.4 General: AO X 3, no acute distress Resp: CTA bilateral, no accessory muscles used CVS: S1,S2,RRR GI: soft, non tender, non distended Neuro: motor grossly intact, alert Psych: appropriate affect, appropriate insight DS: Data Data Completed and Pending Labs on day of discharge: Laboratory Results - last 24 hr 02/03/23 02/03/23 05:56 05:56 WBC 9.1 RBC 3.99 L Hgb 13.1 Hct 38.3 MCV 96.0 MCH 32.8 MCHC 34.2 RDW 11.9 Plt Count 323 MPV 10.6 Absolute Nucleated RBC 0.000 Nucleated RBC % (auto) 0.0 Sodium 142 Potassium 4.4 Chloride 107 Carbon Dioxide 28 Anion Gap 11 L BUN 9 Creatinine 0.76 Estim Creat Clear Calc 96.6 Estimated GFR > 60 Fasting Glucose 143 H Calcium 9.6 Discharge Plan Discharge Anticipated Discharge Date/Time: 02/03/23 08:37 Patient Disposition: Home, Self-Care Discharge Diagnosis: brbpr Referrals: Cindy Stein MD [Primary Care Provider] - 1 Week Discharge Medications: New amoxicillin-pot clavulanate 875-125 mg tablet 1 tab PO Q12H Qty: 10 0RF Continued trazodone 50 mg tablet 50 mg PO BEDTIME PRN (Reason: Sleep) cholecalciferol (vitamin D3) 25 mcg (1,000 unit) Tablet 25 mcg PO DAILY lorazepam 1 mg tablet 1 mg PO DAILY PRN (Reason: Anxiety) furosemide 20 mg tablet 20 mg PO DAILY levothyroxine 112 mcg tablet 112 mcg PO DAILY verapamil 120 mg tablet extended release 120 mg PO DAILY albuterol sulfate 90 mcg/actuation HFA aerosol inhaler 2 puff PO Q6H PRN (Reason: wheezing) metoprolol tartrate 50 mg tablet 50 mg PO BID atorvastatin 80 mg tablet 80 mg PO BEDTIME hydrocodone-acetaminophen 5-325 mg tablet 1 tab PO Q4-6H PRN (Reason: pain) Qty: 30 0RF Rx Instructions: Partial Fill upon patient request. Held Eliquis 5 mg tablet 5 mg PO BID Hold Instructions: Resume on 02/06/23. Discharge Orders: Discharge Order (Routine); Ordered 02/03/23 Ordered By: Mikhail Saavedra Diet: Advance to usual diet Activity on Discharge: As tolerated Stand Alone Forms: Patient Portal Discharge page Care Plan Goals: avoid bleed Health Concerns: bleeding Plan of Treatment: hold eliquis a couple more days, augmentin for 5 more days, follow up with surgery Assessment: see above
--- NOTE | 2023-02-03 09:06 | MHC.CM.PN ---
PLAN IS HOME TODAY - SELF CARE RN AWARE
--- NOTE | 2023-02-05 11:33 | W.PM.OPN ---
Operative Note Operative Note Date of Service: 02/02/23 Narrative: pre op dx- hemorrhoidectomy incision bleed post opd dx - same procedure -- exam under anesthesia and cautery of hemorrhoid site surgeon- Hi Cha- DOMITILA Pt is a 57 year old female who underwent hemorrhoidectomy with Ligasure, 3 columns last week, and then started back on anticoagulation for her afib 2 days later. about a week s/p surgery she had sig rectal bleeding with HGb decreasing [address] scan showing perirectal inflammation and ? rectal perforation. Pt comes in now for exam to evaluate as last night bleeding clots have stopped as anticoagulation held. Procedure - Pt was brought to the OR and placed in Lithotomy position after intubation. digital rectal exam did not reveal any true fresh blood or stool in the vault and the external tissue looked appropriate for postop status. A lighted anal rectractor was placed in the rectal vault and the tissue examined. The proximal rectall tissue looked clean and healthy and no evidence of perforation was noted. The ligasure sites were examined and now after some manipulation with the retractor and digital exam and area on the pts right anterir incsion was oozing and this was stopped with some cautery. This stopped all bleeding and then a perirectal block was done with marcaine and epi. The pt was extubated and returned stable to the recovery room. Blood loss minimum and no cultures or specimens taken
== END 2023-02-03 10:29 | disposition home or self-care (01) ==
LOC: HO.ED 16:26 → HO.EDOVER 17:30 → HO.S3 18:49
PROVIDERS: Physician Assistant Medical; Surgery; Admitting Provider Physician Assistant; Emergency Provider Emergency Medicine; PCP Internal Medicine; Visit Provider Internal Medicine
DX: K91.840 Postprocedural hemorrhage of a digestive system organ or structure following a digestive system procedure (principal); Y83.8 Other surgical procedures as the cause of abnormal reaction of the patient, or of later complication, without mention of misadventure at the time of the procedure; K62.5 Hemorrhage of anus and rectum; I10 Essential (primary) hypertension; E78.5 Hyperlipidemia, unspecified; I48.91 Unspecified atrial fibrillation; E03.9 Hypothyroidism, unspecified; J45.20 Mild intermittent asthma, uncomplicated; Z86.711 Personal history of pulmonary embolism; Z79.01 Long term (current) use of anticoagulants; Z87.891 Personal history of nicotine dependence; Z79.02 Long term (current) use of antithrombotics/antiplatelets; Z79.899 Other long term (current) drug therapy
CPT/HCPCS: 17250; 36415; 74176; 80048; 80053; 83735; 85014; 85018; 85025; 85027; 85610; 85730; 86850; 86900; 86901; 96361; 96365; 96366; 96375; 99221; 99285; J1100; J2250; J2405; J2543; J2795; J3010